=== PATIENT | female | born 1990 | race Caucasian/White ===

== ENCOUNTER 2021-02-15 23:06 | Emergency (ER) | payer OTHER, SELFPAY ==
--- NOTE | ~2021-02-15 | CT_ITS ---
EXAMINATION: CT HEAD WITHOUT CONTRAST CLINICAL INFORMATION: persistent SUNG >1 month, r/o mass COMPARISON: None TECHNIQUE: Contiguous axial imaging was performed from the skull base to vertex without intravenous administration of contrast. This CT examination was performed using dose optimization techniques as appropriate, variously including the following: *Automated exposure control *Adjustment of mA and/or kV according to patient size (this includes techniques or standardized protocols for targeted exams where dose is matched to indication/reason for exam; i.e. extremities or head) *Use of iterative reconstruction technique DLP: 711 mGy-cm FINDINGS: There is no evidence of acute intracranial hemorrhage or territorial infarction. No abnormal mass effect or midline shift is seen. Langford to white matter differentiation is well preserved. No extra-axial fluid collections are identified. No mass lesions are identified on this unenhanced study. There is partial effacement of the CSF spaces at the foramen magnum with borderline tonsillar ectopia (7 mm). The ventricles are normal in size. There is no abnormal attenuation within the brain parenchyma. The osseous structures and soft tissues are normal. The mastoid air cells and visualized portions of the paranasal sinuses are well aerated. CT/CT head/brain wo con IMPRESSION: No acute intracranial pathology. Crowding of the foramen magnum with borderline cerebellar tonsillar ectopia, suggestive of a Chiari 1 malformation. Consider nonemergent MRI brain without contrast for further assessment.
[2021-02-15 23:35] VITALS: BP 142/96; PULSE 80; RESP 20; TEMP 36.8; O2SAT 99; BMI 43.8
--- NOTE | 2021-02-16 01:20 | ED_ITS ---
HPI - Headache General Chief Complaint: Headache Stated Complaint: pressure on left side of head, blurred vision Time Seen by Provider: 02/16/21 01:01 Source: patient Mode of arrival: ambulatory Limitations: no limitations History of Present Illness HPI Narrative: 30 yo female here with complaints of intermittent head pressure associated with intermittent blurry vision and photophobia with nausea >2 month but last few days more frequently occurring. No associated weakness, numbness, tingling, vomiting. H/o seizure disorder but non compliant with medications as they cause nausea/vomiting. H/o migraines but feels different to patient. Related Data Allergies Allergy/AdvReac Type Severity Reaction Status Date / Time PEANUT BUTTER Allergy Severe HIVES AND Uncoded 02/15/21 23:34 DIFFICULTY BREATHING Peanuts Butter Allergy Unknown Hives Uncoded 02/15/21 23:34 Review of Systems Review of Systems: Yes all other systems are reviewed and are negative Constitutional: Constitutional: Reports no additional constitutional complaints, Denies body ache(s), Denies chills, Denies fever(s), Reports headache(s) and Denies weakness Eyes: Eyes: Reports no additional eye complaints and Denies change in vision ENT: Reports system reviewed and no additional complaints, except as documented, Denies dizziness, Reports headache(s), Denies nasal congestion, Denies nasal discharge and Denies neck pain Cardiovascular: Cardiovascular: Reports no additional cardiovascular complaints, Denies chest pain, Denies leg edema and Denies dyspnea Respiratory: Respiratory: Reports no additional respiratory complaints, Denies cough and Denies dyspnea Gastrointestinal: Gastrointestinal: Reports no additional gastrointestinal complaints, Denies abdominal pain, Denies diarrhea, Denies nausea and Denies vomiting Genitourinary: Genitourinary: Reports no additional female genitourinary complaints and Denies urinary incontinence Musculoskeletal: Musculoskeletal: Reports no additional musculoskeletal complaints, Denies back pain, Denies arthralgias, Denies joint swelling, Denies neck pain, Denies numbness and Denies tingling Integumentary/Breasts: Skin/Breast: Reports system reviewed and no additional complaints, except as docu and Denies rash Neurologic: Reports system reviewed and no additional complaints, except as documented, Denies Abnormal speech present, Denies dizziness, Reports headache(s), Denies numbness, Denies tingling and Denies weakness PMF Past Medical History Attestation statement: The following information was validated with the patient. Source: old records reviewed and nursing notes reviewed Social History Social History Alcohol intake: never Smoked in Last 30 Days: No Advance Directives: No Advance Directives Information Provided: No Physical Exam Vital Signs: Vital Signs: Last Vital Signs Temp 98.2 F 02/15/21 23:35 Pulse 80 02/15/21 23:35 Resp 16 02/16/21 01:58 BP 142/96 H 02/15/21 23:35 Pulse Ox 99 02/15/21 23:35 Body Mass Index 43.8 Const: General: cooperative, healthy appearing, comfortable and no acute distress Orientation/consciousness: patient oriented x3 Limitations: no limitations HENMT: Head: Yes normal to inspection Ears: hearing grossly normal bilaterally General nose exam: Normal external nose present Face and sinus: Yes normal facial exam Mouth: Normal oral and palatal mucosa present Throat: Yes posterior oropharynx normal Eyes: General: appearance normal, both eyes and all related structures Pupi ls: Equal, round and reactive pupils present Neck: Neck: Yes normal visual inspection Chest: Chest palpation & inspection: normal inspection of the chest Resp: Effort & Inspection: normal respiratory effort Auscultation: clear to auscultation bilaterally Cardio: Rate: regular rate Rhythm: regular rhythm Peripheral pulses: Peripheral pulses 2+ throughout GI: Inspection: Yes normal to inspection Palpation (GI): Soft to palpation and nontender Auscultation: normal bowel sounds Back/Spine/Pelvis: Thoracic/Lumbar Spine: thoracic and lumbar spine normal to inspection Skin: General skin exam: no rashes or lesions noted Neuro: General: patient oriented x3, no focal motor deficits and normal sensation to monofilament Cranial nerves: Yes CN's II-XII intact bilaterally, Yes Equal, round and reactive pupils present, Yes Bilaterally intact EOM present, Yes Nystagmus not present, Yes Normal facial strength present and Yes Midline tongue present Cognition (Neuro): normal cognition Speech: No Abnormal speech present Gait exam (Neuro): Normal gait present Motor exam (neuro): 5/5 motor strength present throughout Sensory Exam: Normal double simultaneous stimulation for sensation Extrem: General: Yes normal to inspection Course Course Course Narrative: 30 yo female here with complaints of intermittent head pressure with associated blurry vision, photophobia and nausea >2 month. Normal neuro exam. H/o migraines but feels different. 1420-CT head shows IMPRESSION: No acute intracranial pathology. Crowding of the foramen magnum with borderline cerebellar tonsillar ectopia, suggestive of a Chiari 1 malformation. Consider nonemergent MRI brain without contrast for further assessment. NO hydrocephalus seen. Reviewed with Dr Calderon and Dr Avendano. Patient has mild SUNG here with symptoms >2 months with no focal neurological findings. ?chiari malformation as cause of SUNG vs secondary cause. Will refer to neurology for outpatient f/u/. Reviewed worrisome signs/symptoms with patient including worsening SUNG, vomiting episodes, weakness and when to seek care in ED. Comfortable with plan for follow-up. MDM - Headache Differential Diagnosis Differential diagnosis: Likely migraine, tension headache and subarachnoid hemorrhage Medical Records Attestation: I reviewed the patient's medical records. Lab Data Attestation: I reviewed the patient's lab results. Imaging Data CT scan - head: Attestation: I personally reviewed and interpreted this imaging study as follows: Radiologist's impression: IMPRESSION: No acute intracranial pathology. Crowding of the foramen magnum with borderline cerebellar tonsillar ectopia, suggestive of a Chiari 1 malformation. Consider nonemergent MRI brain without contrast for further assessment. Discharge Plan Discharge Clinical Impression: Headache, Abnormal CT scan of head Patient Disposition: Home, Self-Care Instructions: Acute Headache (ED) Additional Instructions: Avoid migraine triggers Increase fluids, rest Limit screen time Your CT scan today showed a chiari malformation and you were given a copy of the report. Call neurology to follow-up and see if this is the explanation of your symptoms Referrals: Lorne Sheridan MD [Physician] - 2 days Physician,Unknown [Primary Care Provider] - 2 days
[2021-02-16 01:58] VITALS: RESP 16
== END 2021-02-16 02:59 | disposition home or self-care (01) ==
PROVIDERS: Emergency Provider Emergency Medicine Emergency Medical Services
DX: R51.9 Headache, unspecified (principal); R93.89 Abnormal findings on diagnostic imaging of other specified body structures
CPT/HCPCS: 70450; 99284

== ENCOUNTER 2021-02-21 09:48 | Emergency (ER) | payer OTHER, SELFPAY ==
[2021-02-21 10:21] VITALS: BP 128/81; PULSE 90; RESP 16; TEMP 36.8; O2SAT 95; BMI 43.6
[2021-02-21 11:47] VITALS: BP 133/85; PULSE 84; RESP 18; O2SAT 98
[2021-02-21] MEDS: Ketorolac Tromethamine 30 MG/ML VIAL IVPUSH (12:02)
[2021-02-21] MEDS: diphenhydrAMINE HCL 50 MG/ML VIAL IVPUSH (12:02)
[2021-02-21] MEDS: Metoclopramide HCl 10 MG/2 ML VIAL IVPUSH (12:02)
[2021-02-21] MEDS: 0.9 % Sodium Chloride 1,000 ML 999 ML IV (12:03)
--- NOTE | 2021-02-21 12:59 | PC.NURSE ---
pt resting in the stretcher using her phone, reports feeling better pain at 4/10
--- NOTE | 2021-02-21 13:19 | ED.HA ---
HPI - Headache General Chief Complaint: Headache Stated Complaint: pressure in head Time Seen by Provider: 02/21/21 11:13 Source: patient Mode of arrival: ambulatory Limitations: no limitations History of Present Illness HPI Narrative: 30-year-old female who presents emergency department for evaluation of headaches. Patient states she has been having headaches for approximately 2 months. She states that initially the headaches were every other day, over the past week the headaches have been occurring daily. She points to her left neck in the left side her head when asked to localize the pain. She describes as a pressure pain which is constant and is 20/10 at its worst. She states that she also has pain behind her left eye and occasionally gets left eye blurred vision. She has occasional nausea but no vomiting so she did with the headache. She does have photophobia. The patient was seen in the emergency department on 02/16/2021 for similar headache. She had a CT scan of the brain at that time revealed Chairi 1 malformation with crowding of the foramen magnum with borderline cerebellar tonsillar ectopia. Is unclear if this was referred to the patient's headaches and she was related to Neurology for further evaluation of her headaches. The patient states that she is not able to get a neurology appointment until March 2021. Related Data Previous Rx's Medication Instructions Recorded metoclopramide HCl [Reglan] 10 mg PO Q6H PRN #14 tab 02/21/21 Allergies Allergy/AdvReac Type Severity Reaction Status Date / Time PEANUT BUTTER Allergy Severe HIVES AND Uncoded 02/15/21 23:34 DIFFICULTY BREATHING Peanuts Butter Allergy Unknown Hives Uncoded 02/15/21 23:34 Review of Systems Review of Systems: Yes all other systems are reviewed and are negative [facility] Past Medical History [facility] Narrative: past medical history: None. Past surgical history: 2 years prior. Social history: She denies tobacco, alcohol and drug use. Medical History (Updated 02/21/21 @ 13:30 by Taqueria Avendano MD) No known health problems Social History Social History Alcohol intake: never Patient Tobacco Use Status: Never used Tobacco Use of substances other than those prescribed or required for medical reasons: No Advance Directives: No Advance Directives Information Provided: No Patient : No Physical Exam Vital Signs: Vital Signs: Last Vital Signs Temp 98.2 F 02/21/21 10:21 Pulse 84 02/21/21 11:47 Resp 18 02/21/21 11:47 BP 133/85 02/21/21 11:47 Pulse Ox 98 02/21/21 11:47 Body Mass Index 43.6 Const: General: cooperative and healthy appearing Orientation/consciousness: oriented to person and oriented to place Limitations: no limitations HENMT: Head: Yes normal to inspection, Yes normocephalic and Yes atraumatic Ears: external ears normal General nose exam: Normal external nose present Face and sinus: Yes normal facial exam Mouth: Normal oral and palatal mucosa present Throat: Yes posterior oropharynx normal Eyes: Periorbital: periorbital findings normal Eyelids: Yes eyelids normal Conjunctivae: conjunctivae normal Sclerae: sclerae normal Corneas: corneas normal Pupils: Equal, round and reactive pupils present Direct Ophthalmoscopy: normal light reflex Neck: Other: Moderate tenderness to palpation of the left trapezius muscle and left occiputal ridge Neck: Yes full ROM, Yes no lymphadenopathy, Yes no meningeal signs, Yes trachea midline and Yes supple Chest: Chest palpation & inspection: normal inspection of the chest and normal palpation of entire chest wall Resp: Effort & Inspection: normal respiratory effort and able to speak in complete sentences Auscultation: clear to auscultation bilaterally Cardio: Rate: regular rate Rhythm: regular rhythm Heart sounds: S1 normal heart sound present, S2 normal heart sound present and no murmurs GI: Inspection: Yes normal to inspection Palpation (GI): Soft to palpation, nontender, no guarding, not rigid and No hepatosplenomegaly present : General: Yes no CVA tenderness Back/Spine/Pelvis: Back: no CVA tenderness Cervical Spine: normal cervical lordosis Thoracic/Lumbar Spine: thoracic and lumbar spine normal to inspection Skin: Lesions: no lesions Rashes: no rashes Wounds: no wounds Neuro: General: oriented to person, oriented to place and no meningeal signs Cranial nerves: Yes CN's II-XII intact bilaterally and Yes Equal, round and reactive pupils present Cognition (Neuro): normal cognition Motor exam (neuro): 5/5 motor strength present throughout Extrem: General: Yes normal to inspection and Yes full ROM Psych: Appearance: well kempt Mental Status: mental status grossly normal Speech and movement: Normal speech and movement present Affect: normal affect Attitude: cooperative Thought process: Normal thought process present Thought content: Normal thought content present Course Course Course Narrative: 30-year-old female who presents emergency department for evaluation of headaches x2 months which have gotten worse over the past week. The headache is left-sided, associated with photophobia, nausea and left eye pain. Patient's physical examination did reveal some tenderness with palpation of her left trapezius muscle otherwise was unremarkable, her neurologic exam was nonfocal. Patient was treated for possible migraine syndrome with normal saline x1 L, Reglan 10 mg IV, Benadryl 50 mg IV and Toradol 30 mg IV. The patient states that her headache is almost completely resolved after this treatment. The patient was discharged with the following migraine regimen: Reglan 10 mg orally, Benadryl 50 mg orally and Excedrin migraine 1 tablet orally every 6 hours as needed for headache. I told the patient that she should make an appointment with our neurologist but she should also try to see if there is any local neurologist at other institutions that can see her sooner. She was discharged with a copy of her CT scan from the previous visit and the reading of the CT scan from previous visit. The patient was given verbal and printed instructions prior to discharge. The patient was advised to follow-up with their PCP in 2 days and to return to the emergency department if their symptoms get worse or if they develop any new symptoms that are concerning to them . Discharge Plan Discharge Clinical Impression: Migraine Qualifiers: Migraine type: without aura Status migrainosus presence: without status migrainosus Intractability: not intractable Qualified Code(s): G43.009 - Migraine without aura, not intractable, without status migrainosus Patient Disposition: Home, Self-Care Instructions: Migraine Headache (ED) Additional Instructions: For your headaches take the following 3 medications together every 6 hours as needed: Reglan ( metoclopramide) 10 mg, 1 pill orally Benadryl 25 mg pills, 2 pills orally Excedrin migraine, 1 pill orally. After you take these medications, lie down in a dark quiet room. These medications will make you sleepy, do not drive or work if you take these medications. If you can fall asleep, this will often break the migraine headache. You should try to get a follow-up apointment with our neurologist. You can also try neurologist at other institutions such as [facility] or [facility]. Dr. Alonso Gonsalez is a neurologist in [place] ( [phone]. Call his office to see if he can fall you up. Prescriptions: New metoclopramide HCl [Reglan] 10 mg tablet 10 mg PO Q6H PRN (Reason: nausea and vomiting) Qty: 14 RF: 0
[2021-02-21 13:37] VITALS: BP 112/70; PULSE 73; RESP 17; TEMP 36.9; O2SAT 96
== END 2021-02-21 13:43 | disposition home or self-care (01) ==
PROVIDERS: Emergency Provider Emergency Medicine Emergency Medical Services
DX: G43.009 Migraine without aura, not intractable, without status migrainosus (principal); G93.5 Compression of brain
CPT/HCPCS: 96361; 96374; 96375; 99284; J1200; J1885; J2765

== ENCOUNTER 2022-09-05 16:38 | Emergency (ER) | payer OTHER, SELFPAY ==
--- NOTE | ~2022-09-05 | CT_ITS ---
EXAMINATION: CT HEAD WITHOUT CONTRAST CLINICAL INFORMATION: Posterior headache. Vision changes. COMPARISON: 02/16/2021 TECHNIQUE: Multidetector volumetric imaging of the head was performed without intravenous contrast material. This CT examination was performed using dose optimization techniques as appropriate, variously including the following: *Automated exposure control *Adjustment of mA and/or kV according to patient size (this includes techniques or standardized protocols for targeted exams where dose is matched to indication/reason for exam; i.e. extremities or head) *Use of iterative reconstruction technique Dose: 657 mGy-cm FINDINGS: There is no evidence of acute intracranial hemorrhage or territorial infarction. No abnormal mass-effect or midline shift is seen. Langford to white matter differentiation is well preserved. No extra axial fluid collections. There is partial effacement of the CSF spaces at the foramen magnum with borderline tonsillar ectopia (7 mm). The ventricles are normal in size and configuration. There is no abnormal attenuation within the brain parenchyma. The soft tissues and osseous structures are normal. The sinuses and mastoid air cells are clear. CT/CT head/brain wo IV con IMPRESSION: No acute intracranial pathology. Borderline cerebellar tonsillar ectopia, unchanged.
[2022-09-05 16:51] VITALS: BP 149/88; PULSE 90; RESP 18; TEMP 36.1; O2SAT 99; BMI 46.4
--- NOTE | 2022-09-05 16:52 | ED.HA ---
HPI - Headache General Chief Complaint: Headache <CURT Bruce Last Filed: 09/05/22 16:56> Stated Complaint: pressure in head, vision issues <CURT Bruce Last Filed: 09/05/22 16:56> Time Seen by Provider: 09/05/22 18:16 <CURT Bruce Last Filed: 09/05/22 16:56> Source: patient <CURT Nesbitt Last Filed: 09/05/22 18:58> Mode of arrival: ambulatory <CURT Nesbitt Last Filed: 09/05/22 18:58> Limitations: no limitations <CURT Nesbitt Last Filed: 09/05/22 18:58> History of Present Illness HPI Narrative: This is a 32-year-old female presenting to the emergency department complaints of pressure to the back of her head times a few years not improving. Patient states that this has been going on unchanged for the past 2 years what made her come in today is that it is happening more frequently. She tells me for the past year she has been having intermittent vision changes that are lasting a few seconds and then her vision returns to normal. Patient has not seen a neurologist for this. She tells me at this time she has no vision changes she just feels pressure in her head, when I ask her to describe the pain she just says pressure she says she has a hard time describing the. She denies neck pain, fevers, chills, numbness, tingling, chest pain, shortness of breath, facial asymmetry, changes in voice. <CURT Nesbitt Last Filed: 09/05/22 18:58> Related Data Home Medications: Previous Rx's Medication Instructions Recorded metoclopramide HCl 10 mg tablet 10 mg PO Q6H PRN nausea and 02/21/21 (Reglan) vomiting #14 tabs ketorolac 10 mg tablet 10 mg PO TID PRN pain 5 days #15 09/05/22 tabs <CURT Bruce Last Filed: 09/05/22 16:56> Allergies/Adverse Reactions: Allergies Allergy/AdvReac Type Severity Reaction Status Date / Time PEANUT BUTTER Allergy Severe HIVES AND Uncoded 09/05/22 16:57 DIFFICULTY BREATHING Peanuts Butter Allergy Unknown Hives Uncoded 09/05/22 16:57 <CURT Bruce - Last Filed: 09/05/22 16:56> Review of Systems Review of Systems: Constitutional : No Weight loss, No Fever, No Chills, No Fatigue, No Malaise ENT/Mouth : No sore throat, No Rhinorrhea Eyes: No Eye Pain, No Swelling, No Redness Cardiovascular : No Chest Pain, No SOB, No Dyspnea on Exertion, No Orthopnea, No Edema, No Palpitations Respiratory : No Cough, No Sputum, No Wheezing Gastrointestinal : No Nausea, No Vomiting, No Diarrhea, No Constipation, No abdominal Pain, No Hematochezia, No Melena Genitourinary : No Dysuria, No Urinary Frequency, No Hematuria, Musculoskeletal : No joint pain, No Myalgias, No Joint Swelling Skin : No Skin Lesions, No rash Neuro : No Weakness, No Numbness, No Dizziness, + Headache Psych : No Anxiety/Panic, No Depression All other systems reviewed and are negative <CURT Nesbitt - Last Filed: 09/05/22 18:58> Yes all other systems are reviewed and are negative <CURT Nesbitt - Last Filed: 09/05/22 18:58> [facility] Past Medical History Attestation statement: The following information was validated with the patient. <CURT Nesbitt - Last Filed: 09/05/22 18:58> Source: old records reviewed and nursing notes reviewed <CURT Nesbitt - Last Filed: 09/05/22 18:58> Medical History: Medical History No known health problems <CURT Bruce - Last Filed: 09/05/22 16:56> Social History Social History: Social History Alcohol intake: never Patient Tobacco Use Status: Never used Tobacco Advance Directives: No Advance Directives Information Provided: No <CURT Bruce - Last Filed: 09/05/22 16:56> Physical Exam Vital Signs: Vital Signs: Last Vital Signs Temp 97.0 F 09/05/22 16:51 Pulse 90 09/05/22 16:51 Resp 18 09/05/22 16:51 BP 149/88 H 09/05/22 16:51 Pulse Ox 99 09/05/22 16:51 O2 Del Method 09/05/22 16:51 BMI result Body Mass Index 46.4 <CURT Bruce - Last Filed: 09/05/22 16:56> Vital Signs: Last Vital Signs Temp 97.0 F 09/05/22 16:51 Pulse 90 09/05/22 16:51 Resp 18 09/05/22 16:51 BP 149/88 H 09/05/22 16:51 Pulse Ox 99 09/05/22 16:51 O2 Del Method 09/05/22 16:51 BMI result Body Mass Index 46.4 vss <CURT Nesbitt - Last Filed: 09/05/22 18:58> Appearance: Alert.? Oriented X3.? No acute distress.? Head: Normocephalic, atraumatic, no step-offs or deformities Eyes: Pupils equal, round and reactive to light.? ENT: Pharynx normal.?Normal fundoscopic exam 2:1 cup to disc ratio, normal red reflex, normal vessels in all 4 directions. EOMI and pain free. Neck: Normal inspection.? Neck supple.? Negative him Kernig and Brudzinski. CVS: Normal heart rate and rhythm.? Pulses normal.? Respiratory: No respiratory distress.? Breath sounds normal.? Abdomen: Soft and nontender.? Skin: Skin warm and dry.? Normal skin color.? Normal skin turgor.? Extremities: No lower extremity edema.? No calf ttp. 5/5 strength to bilateral upper and lower extremities Neuro: Oriented X 3.? No motor deficit.? No sensory deficit. CN 2-12 intact . Normal [id number], cpki-fd-[id number], steady tandem gait with normal coordination. <CURT Nesbitt - Last Filed: 09/05/22 18:58> Course Course Course Narrative: RME - 32 yo female with history of headaches for the last 1 year presents to the ER for evaluation of worsening pressure in the back of her head and new onset of vision changes 3 months ago. She states her vision will randomly go out for a few seconds and she has been getting tingling in both of her heads. CT head in 2020 showing possible Chiari 1 malformation and has been unable to get an outpatient MRI. Will repeat CT head today given worsening symptoms. <CURT Bruce - Last Filed: 09/05/22 16:56> Reevaluation(s) Reevaluation #1: CT of the head with no acute intracranial pathology. Borderline cerebellar tonsillar ectopia unchanged from previous scans. Patient was given Toradol with mild relief of symptoms, will send home with short supply of Toradol. Will have her follow-up with Neurology. Patient's neuro exam remains nonfocal. This case was discussed with my attending Dr. Mclean who agrees w/ dx and tx plan , he also recommends having patient follow-up with Neurosurgery. Educated patient on diagnosis and treatment plan, answered all question, patient verbalizes understanding. At this time patient will be discharged home, advised to return with new or worsening symptoms. Educated on worrisome signs and symptoms and when to return. At this time I feel comfortable w/ discharge home , nothing to be done an emergent basis. <CURT Nesbitt - Last Filed: 09/05/22 18:58> Time: 18:56 <CURT Nesbitt - Last Filed: 09/05/22 18:58> Medications Administered Discontinued Medications Generic Name Dose Route Start Last Admin Trade Name Freq PRN Reason Stop Dose Admin Ketorolac Tromethamine 30 mg 09/05/22 18:26 09/05/22 19:07 Ketorolac Tromethamine 30 Mg/Ml Vial IM 09/05/22 18:27 30 mg ONCE ONE Administration <CURT Bruce - Last Filed: 09/05/22 16:56> Medications Administered Discontinued Medications Generic Name Dose Route Start Last Admin Trade Name Freq PRN Reason Stop Dose Admin Ketorolac Tromethamine 30 mg 09/05/22 18:26 09/05/22 19:07 Ketorolac Tromethamine 30 Mg/Ml Vial IM 09/05/22 18:27 30 mg ONCE ONE Administration <CURT Nesbitt - Last Filed: 09/05/22 18:58> Medical Decision Making Medical Decision Making [facility] Narrative: 1827 32 year old female presents w/ head pressure in the occipital region X 2 years w/ intermittent vision changes PE benign. NIHSS 0, GCS 15 Likely migraine. Unlikely normal pressure hydrocephalus, migraine, stroke, posterior stroke. History and physical exam not consistent with call,, wet macular degeneration. Upon chart reivew CT scan on 01/27/[address] head in 2020 showing possible Chiari 1 malformation and has been unable to get an outpatient MRI. Plan- CT head <CURT Nesbitt - Last Filed: 09/05/22 18:58> Differential Diagnosis Differential Diagnoses: The differential diagnosis associated with the presentation includes <CURT Nesbitt - Last Filed: 09/05/22 18:58> Likely migraine. Unlikely normal pressure hydrocephalus, migraine, stroke, posterior stroke. <CURT Nesbitt - Last Filed: 09/05/22 18:58> Admission/Observation Consideration of admission/observation: Escalation of care including admission/observation considered <CURT Nesbitt - Last Filed: 09/05/22 18:58> unlikley needed <CURT Nesbitt - Last Filed: 09/05/22 18:58> Independent Interpretation I performed an independent interpretation of an: CT Scan <CURT Nesbitt - Last Filed: 09/05/22 18:58> Discharge Plan Discharge Clinical Impression: Headache <CURT Bruce - Last Filed: 09/05/22 16:56> Patient Disposition: Home, Self-Care <CURT Bruce - Last Filed: 09/05/22 16:56> Instructions: Acute Headache (ED), General Headache (ED) <CURT Bruce - Last Filed: 09/05/22 16:56> Additional Instructions: Take your medications as prescribed. If you were prescribed antibiotics today, it is important that you take your medication to their entirety, do not skip any doses, do not finish them early. Follow-up with your primary care provider this week. Please follow-up with neurology and neuro surgery Return to the emergency department with new or worsening symptoms. Such as fevers, chills, chest pain, shortness of breath, nausea, vomiting, dizziness, headache, vision changes, lethargy, changes in vision, dizziness, weakness. In case of emergency call 911 Toradol has been sent to your pharmacy, you tolerated this well in the department. Please take this as prescribed do not take this with ibuprofen, or other NSAIDs, do not mix this with alcohol. Side effects of this medication including increased risk for bleeding and possible kidney injury. [facility] neuro surgery [phone] [place], [address] CT/CT head/brain wo IV con IMPRESSION: No acute intracranial pathology. ? Borderline cerebellar tonsillar ectopia, unchanged. <CURT Bruce - Last Filed: 09/05/22 16:56> Prescriptions: New ketorolac 10 mg tablet 10 mg PO TID PRN (Reason: pain) 5 Days Qty: 15 0RF Rx Instructions: Tolerated IM in the department No Action metoclopramide HCl [Reglan] 10 mg tablet 10 mg PO Q6H PRN (Reason: nausea and vomiting) Qty: 14 0RF <CURT Bruce - Last Filed: 09/05/22 16:56> Referrals: [facility] Neuro/Sleep [Provider Group] - 1 week Physician,Unknown J [Primary Care Provider] - <CURT Bruce - Last Filed: 09/05/22 16:56> Interventions: ED Discharge Assessment Last Done: 09/05/22 19:14 <CURT Bruce - Last Filed: 09/05/22 16:56> Discharge Date/Time: 09/05/22 19:15 <CURT Bruce - Last Filed: 09/05/22 16:56>
[2022-09-05] MEDS: Ketorolac Tromethamine 30 MG/ML VIAL IM (19:07)
== END 2022-09-05 19:15 | disposition home or self-care (01) ==
PROVIDERS: Emergency Provider Emergency Medicine
DX: R51.9 Headache, unspecified (principal); R40.2410 Glasgow coma scale score 13-15, unspecified time; Z79.899 Other long term (current) drug therapy
CPT/HCPCS: 70450; 96372; 99283; 99284; J1885

== ENCOUNTER 2023-09-18 13:26 | Emergency (ER) | payer OTHER, SELFPAY ==
--- NOTE | ~2023-09-18 | CT_ITS ---
EXAMINATION: CT HEAD WITHOUT CONTRAST CLINICAL INFORMATION: Headache. Chiari malformation. COMPARISON: CT head from 09/05/2022 and 02/16/2021. TECHNIQUE: Contiguous axial imaging was performed from the skull base to vertex without intravenous administration of contrast. This CT examination was performed using dose optimization techniques as appropriate, variously including the following: *Automated exposure control. *Adjustment of mA and/or kV according to patient size (this includes techniques or standardized protocols for targeted exams where dose is matched to indication/reason for exam; i.e. extremities or head). *Use of iterative reconstruction technique. DLP: 714 mGy-cm FINDINGS: There is no evidence of acute intracranial hemorrhage or edematous territorial infarction. Langford-white matter differentiation is preserved. There is no abnormal attenuation within the brain parenchyma. The ventricles are normal in morphology and size. No evidence for obstructive hydrocephalus. The cerebellar tonsils are low lying, positioned 0.8 cm below the foramen magnum, similar to prior exams. There is partial effacement of the CSF space of the foramen magnum. Moderate expansion of the sella turcica with partial flattening of the pituitary gland. No abnormal mass effect or midline shift. No extra-axial fluid collections. No acute soft tissue or osseous abnormalities. Mild mucosal thickening of the paranasal sinuses. The mastoid air cells and middle ear cavities are clear. CT/CT head/brain wo IV con IMPRESSION: 1. No evidence of acute intracranial hemorrhage or edematous territorial infarction. 2. The cerebellar tonsils are low lying, positioned up to 0.8 cm below the foramen magnum (similar prior exams). This may be seen in the setting of underlying Chiari I malformation. However, this finding could also be acquired in the setting of intracranial hypertension.
--- NOTE | 2023-09-18 13:33 | ED.HA ---
HPI - Headache General Chief Complaint: General Medical Stated Complaint: Headache, blurry vision Time Seen by Provider: 09/18/23 20:38 Source: patient and family () Mode of arrival: ambulatory Limitations: no limitations History of Present Illness HPI Narrative: 33-year-old female history of seizures, Chiari 1 malformation who presents emergency department for evaluation of headache. Patient states she has had a constant headache for 4 years. She describes the headache as a pressure on the back of her head that is constant. She states that she gets intermittent sharp pains which are much more intense than her chronic headache. She states that she gets occasional blurred vision, photophobia and phonophobia associated with her headaches. She states that occasionally both arms get numb. She states that today her headache got worse therefore she came to the emergency department for evaluation. She denied fever, chills, nausea, vomiting, cough. At the time of evaluation she denies numbness or weakness of her extremities. The patient was seen in the emergency department several times in the past (02/16/2021, 02/21/2021 and 09/05/2022) for chronic headaches and each time she was advised to follow-up with neurology and possibly neurosurgery for her headaches. Patient states that she has not been able to see a neurologist or neurosurgeon to evaluate the Chiari 1 malformation. Related Data Previous Rx's Medication Instructions Recorded metoclopramide HCl 10 mg tablet 10 mg PO Q6H PRN nausea and 02/21/21 (Reglan) vomiting #14 tabs ketorolac 10 mg tablet 10 mg PO TID PRN pain 5 days #15 09/05/22 tabs morphine 15 mg immediate release 15 mg PO Q6H PRN pain #10 tabs 09/18/23 tablet Allergies Allergy/AdvReac Type Severity Reaction Status Date / Time PEANUT BUTTER Allergy Severe HIVES AND Uncoded 09/18/23 13:37 DIFFICULTY BREATHING Peanuts Butter Allergy Unknown Hives Uncoded 09/18/23 13:37 Review of Systems Review of Systems: Yes all other systems are reviewed and are negative [facility] Past Medical History [facility] Narrative: Past medical history: Seizures, Chiari 1 malformation. Social history: She denies tobacco, alcohol and drug use. She is and she is here with her who at this hospital. Medical History No known health problems Social History Social History Alcohol intake: never Patient Tobacco Use Status: Never used Tobacco Smoked in Last 30 Days: No Use of substances other than those prescribed or required for medical reasons: No Advance Directives: No Patient : No Physical Exam Vital Signs: Vital Signs: Last Vital Signs Temp 98.2 F 09/18/23 21:22 Pulse 89 09/18/23 21:22 Resp 17 09/18/23 21:22 BP 131/80 09/18/23 21:26 Pulse Ox 99 09/18/23 21:22 O2 Del Method Room Air 09/18/23 21:22 BMI result Body Mass Index 47.1 Vital signs were normal Exam: General: Awake, alert in no distress Head: Normocephalic, atraumatic EENT: PERRL, Lids normal, sclera normal, conjunctiva normal, nose normal , ears normal, throat without erythema or exudates Neck: Supple, no adenopathy, patient does have tenderness palpation of her trapezius muscles bilaterally Lung: breath sounds symmetric, no wheezing, rales or rhonchi Chest: symmetric movement, nontender Heart: regular rate and rhythm, normal S1, S2 no murmurs or rubs Abdomen: soft, non-tender, nondistended, normal bowel sounds Back: no vertebral tenderness, no CVAT Extremities: no deformities, moves all extremities symmetrically Neuro: Awake, alert, oriented, normal speech, cranial nerves intact, moves all extremities symmetrically Psych: Pleasant, cooperative Course Course Course Narrative: RME: 33 year-old F w/ PMHx presenting to the ED c/o pressure in back of head and sinuses x3-4 years w/arm tingling & blurry vision x1 yr. Patient has been seen and treated in our ED for similar symptoms, had head CT 1 year ago Labs ordered Full HPI, ROS and PE to be performed by primary ED provider. -1941--labs reassuring, pt still c/o SUNG. PO Fioricet given in triage. Pending full eval Medications Administered Discontinued Medications Generic Name Dose Route Start Last Admin Trade Name Freq PRN Reason Stop Dose Admin Acetaminophen 975 mg 09/18/23 21:04 01/24/24 21:27 Acetaminophen 325 Mg Tablet PO 09/18/23 21:05 975 mg ONCE ONE Administration Acetaminophen/Butalbital/Caffeine 1 tab 09/18/23 19:43 09/18/23 20:01 Butalb/Acetamin/Caff 50/325/40 Tablet PO 09/18/23 19:44 1 tab ONCE ONE Administration Aspirin 325 mg 09/18/23 21:04 09/18/23 21:26 Aspirin 325 Mg Tablet PO 09/18/23 21:05 325 mg ONCE ONE Administration Diphenhydramine HCl 50 mg 09/18/23 21:04 09/18/23 21:27 Diphenhydramine Hcl 25 Mg Capsule PO 09/18/23 21:05 50 mg ONCE ONE Administration Metoclopramide HCl 10 mg 09/18/23 21:04 09/18/23 21:26 Metoclopramide Hcl 10 Mg Tablet PO 09/18/23 21:05 10 mg ONCE STA Administration Medical Decision Making Medical Decision Making MDM Narrative: 33-year-old female history of seizures, Chiari 1 malformation who presents emergency department for evaluation of chronic headache with exacerbation of this headache today. The headache is located in the back of her head, constant, with intermittent exacerbation with sharp pain and intermittent numbness of both extremities with photophobia and phonophobia but no nausea or vomiting. She states that also she occasionally gets blurred vision with her headaches. She had no other concerning systemic symptoms at the time my evaluation she had no numbness or weakness of her extremities. Vital signs were normal. Examination did reveal tenderness palpation of her trapezius muscles otherwise neurologic exam was nonfocal. Following evaluation was ordered: CBC, BNP, magnesium, liver panel, PT/INR, troponin, CT scan of the brain without IV contrast Patient was treated with the following: Acetaminophen thin 975 mg orally, aspirin 325 mg orally, Reglan 10 mg orally and Benadryl 50 mg orally 23:16 My interpretation patient's laboratory evaluation is as follows: CBC was normal. Coags were normal. CMP was normal. Troponin was below detectable limits. CT scan of the brain was consistent with the patient's Chiari 1 malformation is unchanged from CT from 1 year prior. Patient got no relief of her symptoms with the above medications therefore she was given morphine 15 mg orally. I did prescribe morphine 15 mg every 6 hours as needed for pain, dispensed 10 tablets. Patient will be referred to our neurology group for follow-up of her chronic headaches and to evaluate the possibility of a Chiari 1 malformation causing her pain. Differential Diagnosis Differential Diagnoses: The differential diagnosis associated with the presentation includes Differential diagnosis includes was not limited to migraine syndrome, headache syndrome, worsening of Chiari 1 malformation Admission/Observation Consideration of admission/observation: Escalation of care including admission/observation considered Lab Data 09/18/23 14:04 09/18/23 14:04 Labs: Lab Results 09/18/23 Range/Units 14:04 WBC 8.9 (4.8-10.8) X10*3/uL RBC 4.80 (4.20-5.50) X10*6/uL Hgb 14.2 (12.0-16.0) g/dl Hct 42.3 (37.0-47.0) % MCV 88.1 (80.0-98.0) fL MCH 29.6 (27.0-33.0) pg MCHC 33.6 (31.0-35.0) g/dl RDW 12.8 (11.0-16.0) % Plt Count 269 (160-400) X10*3/uL MPV 10.0 (9.4-12.3) fL Immature Gran % (Auto) 0.3 (0.0-0.4) % Neut % (Auto) 75.2 H (45-73) % Lymph % (Auto) 18.5 L (20-40) % Medina % (Auto) 4.7 (2-11) % Eos % (Auto) 1.0 (0-4) % Baso % (Auto) 0.3 (0-2) % Lymph # (Auto) 1.7 (1.2-4.9) X10*3/uL [place] # (Auto) 0.4 (0.1-1.2) X10*3/uL Eos # (Auto) 0.1 (0.0-0.4) X10*3/uL Baso # (Auto) 0.0 (0.0-0.2) X10*3/uL Abs Immat Gran (auto) 0.03 (0.00-0.03) X10*3/uL Absolute Neuts (auto) 6.7 (2.0-8.3) x10*3/uL Absolute Nucleated RBC 0.000 (0.0-0.012) X10*3/uL Nucleated RBC % (auto) 0.0 (0.0-0.2) /100WBC PT 13.4 H (11.1-13.3) SEC INR 1.1 (0.9-1.1) Sodium 139 (135-145) mmol/L Potassium 4.0 (3.3-5.1) mmol/L Chloride 104 (96-108) mmol/L Carbon Dioxide 27 (22-29) mmol/L Anion Gap 12 (12-20) BUN 11 (9-16) mg/dL Creatinine 0.73 (0.5-1.4) mg/dL Estim Creat Clear Calc 120.2 Estimated GFR > 60 Random Glucose 119 H (60-115) mg/dL Calcium 9.2 (8.4-10.2) mg/dL Magnesium 1.9 (1.6-2.6) mg/dL Total Bilirubin 0.9 (0.0-1.0) mg/dL Direct Bilirubin 0.3 (0.0-0.5) mg/dL AST 15 (5-31) U/L ALT 13 (0-31) U/L Alkaline Phosphatase 85 (39-117) U/L Troponin I High Sens < 2.7 (<3.5-17.0) ng/L Total Protein 7.7 (6.5-8.0) g/dL Albumin 4.0 (3.5-5.0) g/dL Radiology Impression Discussion of test interpretation with radiology: I have reviewed the radiologist's reading. Radiologist Impression: CT head/brain wo IV con IMPRESSION: 1. No evidence of acute intracranial hemorrhage or edematous territorial infarction. 2. The cerebellar tonsils are low lying, positioned up to 0.8 cm below the foramen magnum (similar prior exams). This may be seen in the setting of underlying Chiari I malformation. However, this finding could also be acquired in the setting of intracranial hypertension. Dictated By: Vinod Olivas DO External Record Review External record reviewed: Other ([place] prescription monitoring program-no previously prescribe narcotics ) Prescription Management I considered prescription management with: Pain Medication Discharge Plan Discharge Clinical Impression: Chiari malformation type I Chronic intractable headache Qualifiers: Headache type: unspecified Qualified Code(s): R51.9 - Headache, unspecified Patient Disposition: Home, Self-Care Additional Instructions: Your blood work was normal. Your CT scan did reveal a Chiari 1 malformation which was unchanged from your previous CT scans. At this time I do not have a clear cause for your headaches however I want you to follow-up with our neurology group for evaluation and to determine if the Chiari 1 malformation may be causing your symptoms. Follow-up with your doctor in 2 days. Please return to the emergency department if your symptoms get worse or if you develop any symptoms that are concerning to you. Prescriptions: New morphine 15 mg tablet 15 mg PO Q6H PRN (Reason: pain) Qty: 10 0RF Rx Instructions: The patient may ask for partial fill; Partial Fill upon patient request. No Action metoclopramide HCl [Reglan] 10 mg tablet 10 mg PO Q6H PRN (Reason: nausea and vomiting) Qty: 14 0RF ketorolac 10 mg tablet 10 mg PO TID PRN (Reason: pain) 5 Days Qty: 15 0RF Rx Instructions: Tolerated IM in the department Referrals: Álvaro Gray MD [Physician] - 2 weeks (Chronic headache, Chiari 1 malformation unchanged, cerebellar tonsils are low lying, positioned up to 0.8 cm below the foramen magnum (similar prior exams).)
[2023-09-18 13:34] VITALS: BP 148/86; PULSE 87; RESP 20; TEMP 36; O2SAT 98; BMI 47.1
[2023-09-18 14:09] LABS: MANUAL DIFF FLAG NO
[2023-09-18 14:17] LABS: Basophils Percent Auto 0.3 % (0-2); Eosinophils Absolute Auto 0.1 X10*3/uL (0.0-0.4); Hematocrit 42.3 % (37.0-47.0); Hemoglobin 14.2 g/dl (12.0-16.0); Imm Gran Abs Auto 0.03 X10*3/uL (0.00-0.03); Imm Gran Pct Auto 0.3 % (0.0-0.4); Lymphocytes Absolute Auto 1.7 X10*3/uL (1.2-4.9); Lymphocytes Percent Auto 18.5 % (20-40); Mean Corpuscular HGB Conc 33.6 g/dl (31.0-35.0); Mean Corpuscular Hemoglobin 29.6 pg (27.0-33.0); Mean Corpuscular Volume 88.1 fL (80.0-98.0); Monocytes Absolute Auto 0.4 X10*3/uL (0.1-1.2); Monocytes Percent Auto 4.7 % (2-11); Neutrophils Absolute Auto 6.7 x10*3/uL (2.0-8.3); Neutrophils Percent Auto 75.2 % (45-73); Platelet Count 269 X10*3/uL (160-400); Red Cell Distribution Width 12.8 % (11.0-16.0); White Blood Count 8.9 X10*3/uL (4.8-10.8)
[2023-09-18 14:18] LABS: INTERNATIONAL NORM RATIO 1.1 (0.9-1.1); Prothrombin Time 13.4 SEC (11.1-13.3)
[2023-09-18 14:25] LABS: Alanine Aminotransferase 13 U/L (0-31); Alkaline Phosphatase 85 U/L (39-117); Anion Gap 12 (12-20); Aspartate Amino Transferase 15 U/L (5-31); Bilirubin Direct 0.3 mg/dL (0.0-0.5); Bilirubin Total 0.9 mg/dL (0.0-1.0); Blood Urea Nitrogen 11 mg/dL (9-16); Calcium 9.2 mg/dL (8.4-10.2); Carbon Dioxide 27 mmol/L (22-29); Chloride 104 mmol/L (96-108); Creatinine Clr Calc Pharmacy 120.2; Estimated Glomerular Filt Rate > 60; Glucose Random 119 mg/dL (60-115); Magnesium 1.9 mg/dL (1.6-2.6); Sodium 139 mmol/L (135-145); Total Protein 7.7 g/dL (6.5-8.0)
[2023-09-18 14:43] LABS: Troponin-I High Sensitivity < 2.7 ng/L (<3.5-17.0)
[2023-09-18 19:44] VITALS: BP 124/85; PULSE 82; RESP 18; TEMP 36.8; O2SAT 98
[2023-09-18] MEDS: Butalb/Acetamin/Caff 50/325/40 TABLET 1 TAB PO (20:01)
[2023-09-18 21:22] VITALS: PULSE 89; RESP 17; TEMP 36.8; O2SAT 99
[2023-09-18 21:26] VITALS: BP 131/80
[2023-09-18] MEDS: Aspirin 325 MG TABLET PO (21:26)
[2023-09-18] MEDS: Metoclopramide HCl 10 MG TABLET PO (21:26)
[2023-09-18] MEDS: diphenhydrAMINE HCL 25 MG CAPSULE 50 MG PO (21:27)
[2023-09-18] MEDS: Acetaminophen 325 MG TABLET 975 MG PO (21:27)
--- NOTE | 2023-09-18 21:28 | PC.NURSE ---
pt medicated per mar.
--- NOTE | 2023-09-18 21:56 | PC.NURSE ---
pt from home a&ox4, respirations even and unlabored. pt reporting a head pressure in the back of head that she has had for 4 years but now is reporting dizziness and blurriness in the eyes. pt denies n.v.d. pt neuro in tact.
[2023-09-18] MEDS: Morphine Sulfate Immed Release 15 MG TABLET PO (23:42)
--- NOTE | 2023-09-18 23:44 | PC.NURSE ---
pt medicated per mar upon discharge. pt states she has a safe ride home.
[2023-09-18 23:45] VITALS: BP 147/82; PULSE 68; RESP 17; TEMP 37; O2SAT 96
== END 2023-09-18 23:46 | disposition home or self-care (01) ==
PROVIDERS: Physician Assistant; Emergency Provider Emergency Medicine Emergency Medical Services
DX: G93.5 Compression of brain (principal); R51.9 Headache, unspecified; H53.8 Other visual disturbances; R20.0 Anesthesia of skin; H53.143 Visual discomfort, bilateral; Z79.899 Other long term (current) drug therapy
CPT/HCPCS: 36415; 70450; 80048; 80076; 83735; 84484; 85025; 85610; 99284

== ENCOUNTER 2023-12-13 18:53 | Emergency (ER) | payer OTHER, SELFPAY ==
--- NOTE | ~2023-12-13 | CT_ITS ---
EXAMINATION: CT HEAD WITHOUT CONTRAST CLINICAL INFORMATION: Headaches. COMPARISON: Multiple prior head CTs dating back to 02/16/2021, most recent dated 09/18/2023. TECHNIQUE: Contiguous axial imaging was performed from the skullbase to vertex without intravenous administration of contrast. This CT examination was performed using dose optimization techniques as appropriate, variously including the following: *Automated exposure control *Adjustment of mA and/or kV according to patient size (this includes techniques or standardized protocols for targeted exams where dose is matched to indication/reason for exam; i.e. extremities or head) *Use of iterative reconstruction technique DLP: 624 mGy-cm. FINDINGS: As seen on prior imaging, the cerebellar tonsils are low in position, approximately 7 mm caudal to level of foramen magnum. There is mild crowding of the cerebellar tonsils around the lower brainstem. An empty sella is again visible. There is no evidence of acute intracranial hemorrhage or territorial infarction. No abnormal mass effect or midline shift is seen. Langford to white matter differentiation is well preserved. No extra-axial fluid collections are identified. The ventricles are normal in size. There is no abnormal attenuation within the brain parenchyma. The osseous structures and soft tissues are normal. The mastoid air cells and visualized portions of the paranasal sinuses are well aerated. CT/CT head/brain wo IV con IMPRESSION: No acute intracranial pathology. Stable low lying cerebellar tonsils and an empty sella. Findings can be seen in the setting of a developmental Chiari I malformation or acquired intracranial hypertension; clinical correlation is recommended.
[2023-12-13 19:10] VITALS: BP 150/95; PULSE 76; RESP 18; TEMP 36.9; O2SAT 100; BMI 46.4
--- NOTE | 2023-12-13 19:14 | ED_ITS ---
HPI - General Adult General Chief complaint: Headache Stated complaint: high bp, nausea, dizziness, headache Time Seen by Provider: 12/13/23 21:30 Source: patient Mode of arrival: ambulatory Limitations: no limitations History of Present Illness HPI narrative: Patient comes to the emergency room complaining of headache. Patient is known to have a Chiari 1 malformation. Patient has been seen by Neurology and Neurosurgery. Patient states that she has been having intermittent headaches for about a year now. Patient denies chest pain or shortness of breath. Patient complaining of photophobia. Patient states that she has been taking Tylenol at home. Also, it was noted that patient's blood pressure was a bit elevated in triage. Patient states that her primary care physician started her on medications but she has not taking them because she is under the impression that neurosurgery does not want her to take any blood pressure medications so they can get their studies done. Related Data Previous Rx's ?Medication ?Instructions ?Recorded metoclopramide HCl 10 mg tablet 10 mg PO Q6H PRN nausea and 02/21/21 (Reglan) vomiting #14 tabs ketorolac 10 mg tablet 10 mg PO TID PRN pain 5 days #15 09/05/22 tabs morphine 15 mg immediate release 15 mg PO Q6H PRN pain #10 tabs 09/18/23 tablet ketorolac 10 mg tablet 10 mg PO Q8H #10 tabs 12/13/23 metoclopramide HCl 10 mg tablet 10 mg PO .T.i.d. PRN nausea and 12/13/23 (Reglan) vomiting #10 tabs Allergies Allergy/AdvReac Type Severity Reaction Status Date / Time PEANUT BUTTER Allergy Severe HIVES AND Uncoded 12/13/23 19:13 DIFFICULTY BREATHING Peanuts Butter Allergy Unknown Hives Uncoded 12/13/23 19:13 Review of Systems 2 Review of Systems: Constitutional : No Weight loss, No Fever, No Chills, No Night Sweats, No Fatigue, No Malaise ENT/Mouth : No Hearing loss, No Ear Pain, No Nasal Congestion, No Sinus Pain, No Hoarseness, No sore throat, No Rhinorrhea, No Swallowing Difficulty Eyes: Complaining of photophobia, No Eye Pain, No Swelling, No Redness, No Foreign Body, No Discharge, No Vision Changes Cardiovascular : No Chest Pain, No SOB, No Dyspnea on Exertion, No Orthopnea, No Edema, No Palpitations Respiratory : No Cough, No Sputum, No Wheezing, No Smoke Exposure, No Dyspnea Gastrointestinal : No Nausea, No Vomiting, No Diarrhea, No Constipation, No abdominal Pain, No Hematochezia, No Melena Genitourinary : no irregular bleeding, No Dysuria, No Urinary Frequency, No Hematuria, No Urinary Incontinence, No Urgency, No Flank Pain, No Urinary Flow Changes, No Hesitancy Musculoskeletal : No joint pain, No Myalgias, No Joint Swelling Skin : No Skin Lesions, No rash Neuro : No Weakness, No Numbness, No Paresthesias, No Loss of Consciousness, No Dizziness, complaining of recurrent migraine Psych : No Anxiety/Panic, No Depression, No SI/HI/AH/VH, No Social Issues, Heme/Lymph: No Bruising, No Bleeding,No Lymphadenopathy Endocrine : No Polyuria, No Polydipsia, No Temperature Intolerance PMFSH Past Medical History Medical History Chiari malformation type I No known health problems Social History Social History Alcohol intake: never Patient Tobacco Use Status: Never used Tobacco Advance Directives: No Advance Directives Information Provided: No Physical Exam ED Vital Signs: Vital Signs - 24 hr 12/13/23 19:10 12/13/23 22:21 Temperature 98.4 F 97.8 F Pulse Rate 76 64 Respiratory Rate 18 16 Blood Pressure 150/95 H 132/76 Pulse Oximetry 100 100 Oxygen Delivery Method Room Air Room Air BMI result Body Mass Index 46.4 Const Other: Appearance: Alert. Oriented X3. No acute distress. Well-appearing Eyes: Pupils equal, round and reactive to light. ENT: Pharynx normal. Neck: Normal inspection. Neck supple. No lymph nodes noted. No crepitus, no rigidity CVS: Normal heart rate and rhythm. Pulses normal. Normal S1 and S2 Respiratory: No respiratory distress. Breath sounds normal. No Wheezing. No rales Abdomen: Soft and nontender. No rigidity. No distention. Skin: Skin warm and dry. Normal skin color. Normal skin turgor. Extremities: No lower extremity edema. No Lacerations. No Rash Neuro: Oriented X 3. No motor deficit. No sensory deficit. Moving all extremities. No slurred speech. CN 2 through 12 grossly intact Psych: calm, cooperative, normal affect Course Course Course Narrative: This is an RME: Additional HPI, ROS, PE not included below will be deferred to primary provider.33-year-old female history of seizures, Chiari 1 malformation who presents emergency department for evaluation of headacheX 4 years. States constant ressure on the back of her head. Intermittent blurred vision, photophobia and phonophobia associated with her headaches. She states that occasionally both arms & fingers get numb. She states that today her neuro surgeon told her to come in today. Meeting with surgeon in [place] next month December [address] . She denied fever, chills, nausea, vomiting, cough. The patient was seen in the emergency department several times in the past (02/16/2021, 02/21/2021 , 09/05/2022, and 09/18/2023) Medications Administered Discontinued Medications Generic Name Dose Route Start Last Admin Trade Name Freq PRN Reason Stop Dose Admin Diphenhydramine HCl 25 mg 12/13/23 21:45 12/13/23 22:13 Diphenhydramine Hcl 50 Mg/Ml Vial IVPUSH 12/13/23 21:46 25 mg ONCE ONE Administration Sodium Chloride 1,000 mls @ 999 mls/hr 12/13/23 21:45 12/13/23 22:13 Ns IVCONT 12/13/23 22:45 999 mls/hr .Q1H1M ONE Administration Ketorolac Tromethamine 30 mg 12/13/23 21:45 12/13/23 22:13 Ketorolac Tromethamine 30 Mg/Ml Vial IVPUSH 12/13/23 21:46 30 mg ONCE ONE Administration Metoclopramide HCl 10 mg 12/13/23 21:45 12/13/23 22:13 Metoclopramide Hcl 10 Mg/2 Ml Vial IVPUSH 12/13/23 21:46 10 mg ONCE ONE Administration Medical Decision Making Medical Decision Making [facility] Narrative: -my interpretation of CT of the head: No acute intracranial bleed. Report from Radiology: No intracranial pathology, care malformation seems once again -for symptomatic treatment patient receiving normal saline, IV ketorolac, Reglan and Benadryl. Lab Data [facility] Lab Attestation statement: I reviewed the patient's lab results. 12/13/23 19:22 12/13/23 19:21 Labs: Lab Results 12/13/23 12/13/23 Range/Units 19:21 19:22 WBC 9.7 (4.8-10.8) X10*3/uL RBC 4.67 (4.20-5.50) X10*6/uL Hgb 14.1 (12.0-16.0) g/dl Hct 41.5 (37.0-47.0) % MCV 88.9 (80.0-98.0) fL MCH 30.2 (27.0-33.0) pg MCHC 34.0 (31.0-35.0) g/dl RDW 13.1 (11.0-16.0) % Plt Count 218 (160-400) X10*3/uL MPV 10.1 (9.4-12.3) fL Immature Gran % (Auto) 0.3 (0.0-0.4) % Neut % (Auto) 73.6 H (45-73) % Lymph % (Auto) 18.5 L (20-40) % Chicot % (Auto) 6.2 (2-11) % Eos % (Auto) 1.0 (0-4) % Baso % (Auto) 0.4 (0-2) % Lymph # (Auto) 1.8 (1.2-4.9) X10*3/uL [place]icot # (Auto) 0.6 (0.1-1.2) X10*3/uL Eos # (Auto) 0.1 (0.0-0.4) X10*3/uL Baso # (Auto) 0.0 (0.0-0.2) X10*3/uL Abs Immat Gran (auto) 0.03 (0.00-0.03) X10*3/uL Absolute Neuts (auto) 7.1 (2.0-8.3) x10*3/uL Absolute Nucleated RBC 0.000 (0.0-0.012) X10*3/uL Nucleated RBC % (auto) 0.0 (0.0-0.2) /100WBC ESR 28 H (0-20) MM/HR Sodium 139 (135-145) mmol/L Potassium 3.4 (3.3-5.1) mmol/L Chloride 108 (96-108) mmol/L Carbon Dioxide 26 (22-29) mmol/L Anion Gap 8 L (12-20) BUN 11 (9-16) mg/dL Creatinine 0.76 (0.5-1.4) mg/dL Estim Creat Clear Calc 114.5 Estimated GFR > 60 Random Glucose 86 (60-115) mg/dL Calcium 9.0 (8.4-10.2) mg/dL Total Bilirubin 0.7 (0.0-1.0) mg/dL AST 16 (5-31) U/L ALT 15 (0-31) U/L Alkaline Phosphatase 74 (39-117) U/L C-Reactive Protein 0.63 H (< or = 0.50) mg/dL Total Protein 7.4 (6.5-8.0) g/dL Albumin 4.0 (3.5-5.0) g/dL Independent Interpretation I performed an independent interpretation of an: CT Scan Radiology Impression Discussion of test interpretation with radiology: I have reviewed the radiologist's reading. Radiologist Impression: FINDINGS: As seen on prior imaging, the cerebellar tonsils are low in position, approximately 7 mm caudal to level of foramen magnum. There is mild crowding of the cerebellar tonsils around the lower brainstem. An empty sella is again visible. There is no evidence of acute intracranial hemorrhage or territorial infarction. No abnormal mass effect or midline shift is seen. Langford to white matter differentiation is well preserved. No extra-axial fluid collections are identified. The ventricles are normal in size. There is no abnormal attenuation within the brain parenchyma. The osseous structures and soft tissues are normal. The mastoid air cells and visualized portions of the paranasal sinuses are well aerated. CT/CT head/brain wo IV con IMPRESSION: No acute intracranial pathology. Stable low lying cerebellar tonsils and an empty sella. Findings can be seen in the setting of a developmental Chiari I malformation or acquired intracranial hypertension; clinical correlation is recommended. Discharge Plan Discharge Clinical Impression: Migraine Patient Disposition: Home, Self-Care Instructions: Migraine Headache (ED) Additional Instructions: Please follow-up with your primary care physician tomorrow. If you have any worsening or new symptoms, please return to the emergency room or call 911 Prescriptions: New ketorolac 10 mg tablet 10 mg PO Q8H Qty: 10 0RF Rx Instructions: maximum total duration of 5 days from all oral, intranasal, or parenteral formulations metoclopramide HCl [Reglan] 10 mg tablet 10 mg PO .T.i.d. PRN (Reason: nausea and vomiting) Qty: 10 0RF No Action metoclopramide HCl [Reglan] 10 mg tablet 10 mg PO Q6H PRN (Reason: nausea and vomiting) Qty: 14 0RF ketorolac 10 mg tablet 10 mg PO TID PRN (Reason: pain) 5 Days Qty: 15 0RF Rx Instructions: Tolerated IM in the department morphine 15 mg tablet 15 mg PO Q6H PRN (Reason: pain) Qty: 10 0RF Rx Instructions: The patient may ask for partial fill; Partial Fill upon patient request. Stand Alone Forms: Work/School Release Print Language: Bengali
--- NOTE | 2023-12-13 19:22 | MHC.EDTECH ---
Patient brought to triage area,labs drawn and sent to lab,patient refused Sars/flu/rsv,triage CURT Rogers made aware.
[2023-12-13 19:30] LABS: MANUAL DIFF FLAG NO
[2023-12-13 19:34] LABS: Basophils Percent Auto 0.4 % (0-2); Eosinophils Absolute Auto 0.1 X10*3/uL (0.0-0.4); Hematocrit 41.5 % (37.0-47.0); Hemoglobin 14.1 g/dl (12.0-16.0); Imm Gran Abs Auto 0.03 X10*3/uL (0.00-0.03); Imm Gran Pct Auto 0.3 % (0.0-0.4); Lymphocytes Absolute Auto 1.8 X10*3/uL (1.2-4.9); Lymphocytes Percent Auto 18.5 % (20-40); Mean Corpuscular Hemoglobin 30.2 pg (27.0-33.0); Mean Corpuscular Volume 88.9 fL (80.0-98.0); Mean Platelet Volume 10.1 fL (9.4-12.3); Monocytes Absolute Auto 0.6 X10*3/uL (0.1-1.2); Monocytes Percent Auto 6.2 % (2-11); Neutrophils Absolute Auto 7.1 x10*3/uL (2.0-8.3); Neutrophils Percent Auto 73.6 % (45-73); Platelet Count 218 X10*3/uL (160-400); Red Blood Count 4.67 X10*6/uL (4.20-5.50); Red Cell Distribution Width 13.1 % (11.0-16.0); White Blood Count 9.7 X10*3/uL (4.8-10.8)
[2023-12-13 19:48] LABS: Alanine Aminotransferase 15 U/L (0-31); Alkaline Phosphatase 74 U/L (39-117); Anion Gap 8 (12-20); Aspartate Amino Transferase 16 U/L (5-31); Bilirubin Total 0.7 mg/dL (0.0-1.0); Blood Urea Nitrogen 11 mg/dL (9-16); C Reactive Protein 0.63 mg/dL (< or = 0.50); Carbon Dioxide 26 mmol/L (22-29); Chloride 108 mmol/L (96-108); Creatinine Clr Calc Pharmacy 114.5; Estimated Glomerular Filt Rate > 60; Glucose Random 86 mg/dL (60-115); Potassium 3.4 mmol/L (3.3-5.1); Sodium 139 mmol/L (135-145); Total Protein 7.4 g/dL (6.5-8.0)
[2023-12-13 20:14] LABS: Erythrocyte Sedimentation Rate 28 MM/HR (0-20)
[2023-12-13] MEDS: Metoclopramide HCl 10 MG/2 ML VIAL IVPUSH (22:13)
[2023-12-13] MEDS: diphenhydrAMINE HCL 50 MG/ML VIAL 25 MG IVPUSH (22:13)
[2023-12-13] MEDS: 0.9 % Sodium Chloride 1,000 ML 999 ML IVCONT (22:13)
[2023-12-13] MEDS: Ketorolac Tromethamine 30 MG/ML VIAL IVPUSH (22:13)
[2023-12-13 22:21] VITALS: BP 132/76; PULSE 64; RESP 16; TEMP 36.6; O2SAT 100
[2023-12-14 00:21] VITALS: BP 132/76; PULSE 64; RESP 16; TEMP 36.6; O2SAT 100
== END 2023-12-14 00:22 | disposition home or self-care (01) ==
PROVIDERS: Physician Assistant; Emergency Provider Emergency Medicine
DX: G43.909 Migraine, unspecified, not intractable, without status migrainosus (principal)
CPT/HCPCS: 70450; 80053; 85025; 85652; 86140; 96361; 96374; 96375; 99284; J1200; J1885; J2765

== ENCOUNTER 2024-05-18 08:56 | Emergency (ER) | payer OTHER, SELFPAY ==
--- NOTE | ~2024-05-18 | XR_ITS ---
EXAMINATION: XR RIGHT FOOT XR RIGHT ANKLE CLINICAL INFORMATION: Pain after injury. COMPARISON: None available. TECHNIQUE: 2 views of the right ankle were obtained. 3 views of the right foot were obtained. FINDINGS: Alignment is anatomic. Joint spaces are preserved. Talar dome is intact. Pes cavus. No displaced fracture or dislocation. XR/XR ankle RT 2V IMPRESSION: No acute abnormality. Electronically signed by: Rosendo Zee MD 05/18/2024 11:40 AM EDT
--- NOTE | ~2024-05-18 | XR_ITS ---
EXAMINATION: XR RIGHT FOOT XR RIGHT ANKLE CLINICAL INFORMATION: Pain after injury. COMPARISON: None available. TECHNIQUE: 2 views of the right ankle were obtained. 3 views of the right foot were obtained. FINDINGS: Alignment is anatomic. Joint spaces are preserved. Talar dome is intact. Pes cavus. No displaced fracture or dislocation. XR/XR foot RT min 3V IMPRESSION: No acute abnormality. Electronically signed by: Rosendo Zee MD 05/18/2024 11:40 AM EDT
[2024-05-18 09:37] VITALS: BP 139/92; PULSE 77; RESP 18; TEMP 36.9; O2SAT 98; BMI 46.4
--- NOTE | 2024-05-18 12:29 | ED.GENADULT ---
HPI - General Adult General Chief complaint: Extremity Injury, Lower Stated complaint: r foot inj Time Seen by Provider: 05/18/24 11:58 Source: patient Mode of arrival: ambulatory Limitations: no limitations History of Present Illness ED Provider: SUSI LOMAX PA-C HPI narrative: 33 yo female with no significant pmhx presents to ED today with right ankle/ foot pain s/p fall while trying to separate her dog and the neighbors dog during a dog fight. She is unable to recall details as it happened so quickly, however spouse is at the bedside providing supporting information. States she rolled the right ankle during the fall and scraped her right side her foot upon landing. The dogs did not bite her. Reports abrasions to 4th and 5th lateral toes. Pain on flexion and ambulation, pain radiating into the calf and along the sides in the achilles area on foot flexion/walking. Has tried 1x dose Tylenol with minimal improvement. states she was uncomfortable trying to sleep last night and decided to be evaluated. Denies fever, chills, numbness/tingling/weakness of the RLE. Related Data Previous Rx's ?Medication ?Instructions ?Recorded metoclopramide HCl 10 mg tablet 10 mg PO Q6H PRN nausea and 02/21/21 (Reglan) vomiting #14 tabs ketorolac 10 mg tablet 10 mg PO TID PRN pain 5 days #15 09/05/22 tabs morphine 15 mg immediate release 15 mg PO Q6H PRN pain #10 tabs 09/18/23 tablet ketorolac 10 mg tablet 10 mg PO Q8H #10 tabs 12/13/23 metoclopramide HCl 10 mg tablet 10 mg PO .T.i.d. PRN nausea and 12/13/23 (Reglan) vomiting #10 tabs Allergies Allergy/AdvReac Type Severity Reaction Status Date / Time PEANUT BUTTER Allergy Severe HIVES AND Uncoded 05/18/24 09:40 DIFFICULTY BREATHING Peanuts Butter Allergy Unknown Hives Uncoded 05/18/24 09:40 Review of Systems Review of Systems: Constitutional: No fever, chills, fatigue, night sweats, weight changes ENT/Mouth: No ear pain, hearing loss, nasal congestion, sinus pain, rhinorrhea, sore throat Eyes: No eye pain, swelling, redness, vision changes, discharge Cardio: No chest pain, palpitations, COOL, orthopnea, peripheral edema Pulm: No SOB, cough, sputum, wheezing, dyspnea, hemoptysis GI: No nausea, vomiting, hematemesis, abdominal pain, diarrhea, constipation, hematochezia, melena : No irregular bleeding, dysuria, frequency, urgency, hesitancy, hematuria, flank pain, urinary flow changes, urinary incontinence or retention MSK: No back pain, neck pain, joint pain, myalgias, +right foot/ankle pain Skin: No lesions, rashes Neuro: No weakness, numbness, paresthesias, LOC, dizziness, headache Psych: No anxiety/panic, depression, SI/HI, AH/VH All other systems reviewed and are negative. [facility] Past Medical History Attestation statement: The following information was validated with the patient. Source: old records reviewed and nursing notes reviewed Medical History Chiari malformation type I No known health problems Social History Social History Alcohol intake: never Patient Tobacco Use Status: Never used Tobacco Advance Directives: No Advance Directives Information Provided: Yes Physical Exam ED Vital Signs: Vital Signs - 24 hr 05/18/24 09:37 Temperature 98.5 F Pulse Rate 77 Respiratory Rate 18 Blood Pressure 139/92 H Pulse Oximetry 98 Oxygen Delivery Method Room Air BMI result Body Mass Index 46.4 hypertensive, vitals otherwise wnl General: Well appearing, in no acute distress. Skin: Warm, dry, intact. No rashes or lesions. Head: Normocephalic, atraumatic. EENT: Hearing is intact b/l. Conjunctiva clear. Sclera is anicteric. PERRLA. EOM intact. Moist mucous membranes.? Neck: Supple without LAD Cardiac: Chest wall symmetric. RRR. No MRG. No JVD. Lungs: Normal respiratory effort without accessory muscle use. CTA bilaterally. Ext: +minimal swelling noted to lateral aspect of right ankle. No overlying skin changes or obvious deformity. There are 2 small abrasions noted to right 5th toe. Slightly tender to palpation without palpable deformity. No warmth. Negative Willson test on right. No calf tenderness. 2+ PT/DP pulse intact. Ambulating with steady gait. Neuro: AOx3. Normal speech. Ambulating with steady gait. Psych: Appropriate mood and affect. Responds appropriately to questions. Course Course Course Narrative: 1314 -- x-rays do not demonstrate fracture or dislocation. Patient provided with Aircast. Advised to take Tylenol and ibuprofen at home as needed. Educated on RICE therapy. Patient has remained stable throughout ED visit today. Discussed worrisome signs and symptoms and when to return to the ED. All questions answered at this time. Patient is agreeable with disposition and stable for discharge. Procedures Orthopedic Splinting/Casting Injury #1: Side: right Lower Extremity Injury Location: ankle Lower Extremity Immobilizer: AirCast Medical Decision Making Medical Decision Making MDM Narrative: 33 yo female with no significant pmhx presents to ED today with right ankle/ foot pain s/p fall while trying to separate her dog and the neighbors dog during a dog fight. Slightly hypertensive to 139/92, vitals otherwise WNL afebrile. She is nontoxic-appearing and in no acute distress. On exam, minimal swelling noted to lateral aspect of right ankle. No overlying skin changes or obvious deformity. There are 2 small abrasions noted to right 5th toe. Slightly tender to palpation without palpable deformity. No warmth. Negative Willson test on right. No calf tenderness. 2+ PT/DP pulse intact. Ambulating with steady gait. Differential diagnosis includes MSK sprain/strain, contusion, abrasion, fracture, arthritis. Lower suspicion for dislocation. Presentation not consistent with gout, pseudogout, neurovascular compromise, threat to limb, compartment syndrome. Plan for imaging and re-evaluation. Differential Diagnosis Differential Diagnoses: The differential diagnosis associated with the presentation includes As above Admission/Observation Not indicated Independent Interpretation I performed an independent interpretation of an: Plain X-Ray Interpretation: X-ray right foot/ankle without acute fracture, agree with radiologist's interpretation. Radiology Impression Discussion of test interpretation with radiology: I have reviewed the radiologist's reading. Radiologist Impression: EXAMINATION: XR RIGHT FOOT XR RIGHT ANKLE CLINICAL INFORMATION: Pain after injury. COMPARISON: None available. TECHNIQUE: 2 views of the right ankle were obtained. 3 views of the right foot were obtained. FINDINGS: Alignment is anatomic. Joint spaces are preserved. Talar dome is intact. Pes cavus. No displaced fracture or dislocation. XR/XR foot RT min 3V IMPRESSION: No acute abnormality. Electronically signed by: Rosendo Zee MD 05/18/2024 11:40 AM EDT RP EXAMINATION: XR RIGHT FOOT XR RIGHT ANKLE CLINICAL INFORMATION: Pain after injury. COMPARISON: None available. TECHNIQUE: 2 views of the right ankle were obtained. 3 views of the right foot were obtained. FINDINGS: Alignment is anatomic. Joint spaces are preserved. Talar dome is intact. Pes cavus. No displaced fracture or dislocation. XR/XR ankle RT 2V IMPRESSION: No acute abnormality. Electronically signed by: Rosendo Zee MD 05/18/2024 11:40 AM EDT RP Independent Historian Clinical information obtained from an independent historian. History obtained from or confirmed by: Spouse External Record Review External record reviewed: Inpatient record Prescription Management I considered prescription management with: Pain Medication (Tylenol, Motrin) Social Determinants Patient?s care significantly limited by Social Determinants of Health including: Other Social Determinant of Health Critical Care Time Critical Care Time Critical Care Time: No Discharge Plan Discharge Clinical Impression: Right ankle sprain Patient Disposition: Home, Self-Care Instructions: R.I.C.E. Treatment (ED), Walking Boot (ED) Additional Instructions: You were evaluated in the Emergency Department today for your right ankle/ foot pain.? Your evaluation did not show signs of medical conditions requiring emergent intervention at this time. Use ice several times per day for 20 minutes at a time for the next 48 hours and then change to heat. I recommend you take 600mg ibuprofen every 6 hours or tylenol 650mg every 6 hours as needed for pain. If needed, you can alternate these medications so that you take one medication every 3 hours. For example, at noon take ibuprofen, then at 3pm take tylenol, then at 6pm take ibuprofen. You have been provided with an aircast for comfort. Please schedule an appointment for follow-up with your primary care provider this week for further evaluation of your symptoms. Return to the Emergency Department if you experience worsening back pain, difficulty walking, fevers, numbness, tingling, incontinence, or any other concerning symptoms. In the case of an emergency call 911. Prescriptions: No Action metoclopramide HCl [Reglan] 10 mg tablet 10 mg PO Q6H PRN (Reason: nausea and vomiting) Qty: 14 0RF ketorolac 10 mg tablet 10 mg PO TID PRN (Reason: pain) 5 Days Qty: 15 0RF Rx Instructions: Tolerated IM in the department morphine 15 mg tablet 15 mg PO Q6H PRN (Reason: pain) Qty: 10 0RF Rx Instructions: The patient may ask for partial fill; Partial Fill upon patient request. ketorolac 10 mg tablet 10 mg PO Q8H Qty: 10 0RF Rx Instructions: maximum total duration of 5 days from all oral, intranasal, or parenteral formulations metoclopramide HCl [Reglan] 10 mg tablet 10 mg PO .T.i.d. PRN (Reason: nausea and vomiting) Qty: 10 0RF Stand Alone Forms: Work/School Release Print Language: Macedonian
[2024-05-18 13:17] VITALS: BP 139/92; PULSE 77; RESP 18; TEMP 36.9; O2SAT 98
== END 2024-05-18 13:27 | disposition home or self-care (01) ==
PROVIDERS: Emergency Provider Emergency Medicine Emergency Medical Services
DX: S93.401A Sprain of unspecified ligament of right ankle, initial encounter (principal); S90.414A Abrasion, right lesser toe(s), initial encounter; W19.XXXA Unspecified fall, initial encounter; Y93.89 Activity, other specified; Y92.9 Unspecified place or not applicable; Y99.9 Unspecified external cause status; M79.671 Pain in right foot
CPT/HCPCS: 73600; 73630; 99283

== ENCOUNTER 2025-05-18 10:13 | Emergency (ER) | payer OTHER, SELFPAY ==
[2025-05-18 10:14] VITALS: BP 145/80; PULSE 93; RESP 18; TEMP 36.6; O2SAT 98; BMI 28.9
--- NOTE | 2025-05-18 10:15 | ED_ITS ---
HPI - General Adult General Chief complaint: Abdominal Pain Stated complaint: Lump/discomfort pelvic area Time Seen by Provider: 05/18/25 11:01 History of Present Illness ED Provider: Mikey Ba MD HPI narrative: This is a healthy 34-year-old female who comes in for evaluation of what she perceives as tender nodule in the inguinal region on the right side. She also noted that she has manually decompressed right lower labial ?cyst ?. 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 She denies dysuria flank pain right lower quadrant pain this is more in the inguinal region. Related Data Previous Rx's ?Medication ?Instructions ?Recorded metoclopramide HCl 10 mg tablet 10 mg PO Q6H PRN nause a and 02/21/21 (Reglan) vomiting #14 tabs ketorolac 10 mg tablet 10 mg PO TID PRN pain 5 days #15 09/05/22 tabs morphine 15 mg immediate release 15 mg PO Q6H PRN pain #10 tabs 09/18/23 tablet ketorolac 10 mg tablet 10 mg PO Q8H #10 tabs metoclopramide HCl 10 mg tablet 10 mg PO .T.i.d. PRN n ausea and 12/13/23 (Reglan) vomiting #10 tabs sulfamethoxazole 800 1 tab PO Q12H 5 days #10 tab s 05/18/25 mg-trimethoprim 160 mg tablet (Bactrim DS) Allergies Allergy/AdvReac Type Severity Reaction Status Date / Time PEANUT BUTTER Allergy Severe HIVES AND Uncoded 05/18/25 10:16 DIFFICULTY BREATHING Peanuts Butter Allergy Unknown Hives Uncoded 05/18/25 10:16 [facility] Past Medical History Medical History Chiari malformation type I No known health problems Social History Social History Alcohol intake: never Patient Tobacco Use Status: Never used Tobacco Advance Directives: No Advance Directives Information Provided: No Do you have a plan to hurt others: No Plan Physical Exam ED Exam Exam: EXAM: Gen: Alert, awake, well appearing, well hydrated. Head: Atraumatic Eyes: Anicteric, Normal conjunctiva. ENT: Moist mucosa, no pallor. ? Neck: Supple. Skin: ?No observable rash or bruising on exposed or examined skin Respiratory: Breathing comfortably, No distress.Clear to auscultation bilaterally, symmetric chest expansion, No wheeze, rales, ronchi. Cardiovascular: Regular rate and rhythm. No murmurs or rub. Well perfused periphery, warm extremities. No edema. ? Abdominal: No focal tenderness. Soft, no objective distension. No palpable masses or obvious organomegaly. ?No guarding, no rebound tenderness or other peritoneal findings. : No flank tenderness. Chaperoned by a female nurse aide cursory external exam: Very small indurated area likely a Bartholin cyst no expressible purulence the patient showed me a photo of this area draining purulence earlier in the day when she manually decompressed it. There was some pus at the superior aspect of the labia minora overlying the urethral meatus Neuro: Alert. Gross movement of all extremities intact. ? Psych: Calm. Cooperative. MSK: No grossly visible deformity. Vital signs: See flowsheet Vital Signs: Vital Signs - 24 hr 05/18/25 10:14 05/18/25 11:39 Temperature 98 F 97.6 F Pulse Rate 93 93 Respiratory Rate 18 18 Blood Pressure 145/80 H 145/80 H Pulse Oximetry 98 98 Oxygen Delivery Method Room Air Room Air BMI result Body Mass Index 28.9 Course Course Course Narrative: This is a Rapid Medical Examination (RME) performed by Oh Nuñez PA-C in triage. Full HPI, ROS, assessment and treatment plan per primary provider in the Main ED. Hx: 34 yo F hx of bartholins abscess here for eval of right sided pelvic pain x last night. worse w/ movement. states it feels like I have a lump inside . no urinary sx. no fever/chills. no recent heavy lifting. no hx ovarian cysts. Plan: labs, UA Medications Administered Discontinued Medications Generic Name Dose Route Start Last Admin Trade Name Freq PRN Reason Stop Dose Admin Trimethoprim/Sulfamethoxazole 1 tab 05/18/25 11:15 05/18/25 11:37 Sulfamethox/Trimeth 800/160 Tablet PO 05/18/25 11:16 1 tab ONCE ONE Administration Procedures Procedure Narrative Procedure Narrative: EMERGENCY ULTRASOUND INTERPRETATION-Limited Retroperitoneal (Renal) [This study was ordered, performed, and interpreted by myself. The study reveals: Impression: NO EVIDENCE OF UROLOGIC OBSTRUCTION] [Indication: FLANK PAIN Bladder: ANECHOIC URINE Right Kidney: NO HYDRONEPHROSIS Left Kidney: NO HYDRONEPHROSIS Performed by: Mikey Ba MD Images were stored CPT: 73014] Medical Decision Making Medical Decision Making MDM Narrative: Medical Decision Makin-year-old healthy female with right inguinal pain as the chief complain of presentation. This is likely reactive lymph node from the infected Bartholin's cyst which was manually expressed this morning. No indication at this time based on clinical exam to I and D this as she appears to have drained all of the active purulence. Although urinalysis suggests UTI given the clinical exam I think this is purulence that is mobilize the upward towards the urethral region. We will treat her for Bartholin gland abscess commercial loan collection officer follow up recommended Preliminary Favored Differential Diagnosis: UTI, pyelo, cystitis, Bartholin cyst/Bartholin abscess among additional considered etiologies Testing Interpreted Independently: ?See below for details Radiology or Lab testing Results Reviewed: ?See below for details Consults: ?See below for details Independent Historians/External Chart Reviews: ?See below for details Social Determinants of Health Impacting MDM/Planning: ?See below for details Lab Data MDM Lab Attestation statement: I reviewed the patient's lab results. 05/18/25 10:30 05/18/25 10:30 Labs: Lab Results 05/18/25 Range/Units 10:30 WBC 9.6 (4.8-10.8) X10*3/uL RBC 4.03 L (4.20-5.50) X10*6/uL Hgb 12.2 (12.0-16.0) g/dl Hct 36.5 L (37.0-47.0) % MCV 90.6 (80.0-98.0) fL MCH 30.3 (27.0-33.0) pg MCHC 33.4 (31.0-35.0) g/dl RDW 14.6 (11.0-16.0) % Plt Count 200 (160-400) X10*3/uL MPV 10.1 (9.4-12.3) fL Immature Gran % (Auto) 0.1 (0.0-0.4) % Neut % (Auto) 59.8 (45-73) % Lymph % (Auto) 32.8 (20-40) % [place] % (Auto) 6.4 (2-11) % Eos % (Auto) 0.6 (0-4) % Baso % (Auto) 0.3 (0-2) % Lymph # (Auto) 3.2 (1.2-4.9) X10*3/uL [place] # (Auto) 0.6 (0.1-1.2) X10*3/uL Eos # (Auto) 0.1 (0.0-0.4) X10*3/uL Baso # (Auto) 0.0 (0.0-0.2) X10*3/uL Abs Immat Gran (auto) 0.01 (0.00-0.03) X10*3/uL Absolute Neuts (auto) 5.7 (2.0-8.3) x10*3/uL Absolute Nucleated RBC 0.000 (0.0-0.012) X10*3/uL Nucleated RBC % (auto) 0.0 (0.0-0.2) /100WBC Sodium 141 (135-145) mmol/L Potassium 3.7 (3.3-5.1) mmol/L Chloride 109 H (96-108) mmol/L Carbon Dioxide 27 (22-29) mmol/L Anion Gap 9 L (12-20) BUN 10 (9-16) mg/dL Creatinine 0.62 (0.5-1.4) mg/dL Estim Creat Clear Calc 111.4 Estimated GFR > 60 Random Glucose 84 (60-115) mg/dL Calcium 9.1 (8.4-10.2) mg/dL Magnesium 2.0 (1.6-2.6) mg/dL Total Bilirubin 1.2 H (0.0-1.0) mg/dL AST 27 (5-31) U/L ALT 18 (0-31) U/L Alkaline Phosphatase 83 (39-117) U/L Total Protein 7.0 (6.5-8.0) g/dL Albumin 4.0 (3.5-5.0) g/dL Lipase 12 (8-78) U/L Urine Color Dark Yellow Urine Appearance Cloudy Urine pH 5.5 (5.0-9.0) Ur Specific Lorenzo >= 1.030 H (1.005-1.025) Urine Protein 30 (1+) H (Neg-Trace) mg/dL Urine Glucose (UA) Negative (Negative) mg/dL Urine Ketones Trace (Negative) mg/dL Urine Blood Moderate (2+) H (Negative) Urine Nitrite Negative (Negative) Ur Leukocyte Esterase Large (3+) H (Negative) Urine RBC >20 H (0-2) /HPF Urine WBC >50 H (0-5) /HPF Ur Squamous Epith Cells 6-10 (0-2) /HPF Urine Bacteria None Seen (None Seen) Hyaline Casts 3-5 (0-2) /LPF Urine Test NEGATIVE (NEGATIVE) Discharge Plan Discharge Clinical Impression: Abscess of Bartholin gland Patient Disposition: Home, Self-Care Instructions: Abscess Follow-up (ED) Additional Instructions: _ DISCHARGE DIAGNOSES: Bartholin gland abscess with infection HISTORY OF PRESENTATION: ?Abscess manually drained at home EMERGENCY DEPARTMENT COURSE,TESTS, TREATMENTS: While in the ED today you had a pelvic exam that is suggested an near complete drainage of Bartholin gland abscess. Urinalysis showed evidence of UTI but this is likely pus coming from the gland abscess obscuring or complicating the analysis DISCHARGE MEDICATIONS: ?Bactrim for 7 days FOLLOW-UP: ?Call your primary or general physician soon as possible to discuss your symptoms, your ED visit and to discuss follow up plans You must see your commercial loan collection officer in the next 2-4 days or after antibiotic course to evaluate for treatment effectiveness INSTRUCTIONS ?& RETURN PRECAUTIONS: If any symptoms change first call your primary physician, if it is after-hours your primary doctors office should have a provider transportation solutions manager you can speak with. If the symptoms are severe or very concerning to you then call 911 or return to the ED. [[id number]] Mikey Ba MD Emergency Physician [facility] Prescriptions: New sulfamethoxazole-trimethoprim [Bactrim DS] 800-160 mg tablet 1 tab PO Q12H 5 Days Qty: 10 0RF No Action metoclopramide HCl [Reglan] 10 mg tablet 10 mg PO Q6H PRN (Reason: nausea and vomiting) Qty: 14 0RF ketorolac 10 mg tablet 10 mg PO TID PRN (Reason: pain) 5 Days Qty: 15 0RF Rx Instructions: Tolerated IM in the department morphine 15 mg tablet 15 mg PO Q6H PRN (Reason: pain) Qty: 10 0RF Rx Instructions: The patient may ask for partial fill; Partial Fill upon patient request. ketorolac 10 mg tablet 10 mg PO Q8H Qty: 10 0RF Rx Instructions: maximum total duration of 5 days from all oral, intranasal, or parenteral formulations metoclopramide HCl [Reglan] 10 mg tablet 10 mg PO .T.i.d. PRN (Reason: nausea and vomiting) Qty: 10 0RF Interventions: ED Discharge Assessment Last Done: 05/18/25 11:39 Discharge Date/Time: 05/18/25 11:39 Print Language: Khmer
[2025-05-18 10:57] LABS: Calcium 9.1 mg/dL (8.4-10.2); Chloride 109 mmol/L (96-108); Potassium 3.7 mmol/L (3.3-5.1); Sodium 141 mmol/L (135-145)
[2025-05-18] MEDS: Sulfamethox/Trimeth 800/160 TABLET 1 TAB PO (11:37)
[2025-05-18 11:39] VITALS: BP 145/80; PULSE 93; RESP 18; TEMP 36.4; O2SAT 98
--- OUTSIDE RECORDS SUMMARY | 2025-05-18 13:39 | XMS_ITS | Clinical Summary ---
Author Organization 175 [facility] Address [address] [place] [address] Phone Care Team Providers Care Conveyor Mechanic Name Role Phone Yuni Manrique MD Primary Care Provider [phone] Allergies Active Allergy Reactions Criticality Noted Date Comments Peanut Butter Flavor Anaphylaxis High 09/24/2024 Rash and hives Medications acetaminophen (TYLENOL) 500 mg tablet Take 2 tablets (1,000 mg total) by mouth every 8 (eight) hours. 30 tablet 09/11/2024 Active wheat dextrin 3 gram/3.5 gram powder in packet Take 1 packet by mouth 1 (one) time each day. 30 packet 09/11/2024 Active simethicone (MYLICON) 80 mg chewable tablet Chew 1 tablet (80 mg total) every 6 (six) hours if needed for flatulence. 30 tablet 09/11/2024 Active oxyCODONE (ROXICODONE) 5 mg immediate release tablet Take 1 tablet (5 mg total) by mouth every 6 (six) hours if needed for moderate pain or severe pain. 12 tablet 09/26/2024 Active Active Problems Problem Noted Date Diagnosed Date Morbid (severe) obesity due to excess calories ([facility] V24, [facility] V28) 08/03/2024 Class 3 severe obesity with body mass index (BMI) of 40.0 to 44.9 in adult ([facility] V24, [facility] V28) 06/04/2024 Chiari malformation type I ([facility] V24, [facility] V28) 10/17/2023 Overview (06/04/2024): Last Assessment & Plan: Patient describes worsening daily posterior/occipital headaches that started approximately 4 years ago, after the of her son. She states the headaches are at least a constant 6/10, at times worse, for example she went to the emergency department at [facility] 09/18/2023 for severe headache. She notes blurry vision, especially if she is bending over to pick something up. She will get nausea on and off throughout the day, mostly mild. Occasionally she will notice some balance issues. When she has the pressure headache in the back of her head, at times she feels pain in her right throat, sometimes she gets a stabbing pain in the occiput. She denies any choking or swallowing issues. She has history of seizures at 14 years old, states they did an EEG and told her she only gets seizures while sleeping, she denies ever being on seizure medication. She does not recall ever seeing a neurologist. She also has not had an ophthalmology exam. Patient also has been having high blood pressure, is not on any blood pressure medicine. She cannot recall how high the blood pressure has been, but is keeping record for her PCP and writing it down at home. Patient had a head CT at [facility] 09/18/2023 with no evidence of acute intracranial hemorrhage or infarct, cerebellar tonsils were low-lying, up to 8 mm below the foramen magnum, similar to prior exam 09/05/2022 and 02/16/2021. I reviewed the head CT images with patient. Ms. El has daily progressively worsening headaches, blurry vision on and off, more recently mild balance issues. We can check cine flow C-spine MRI to see if her finding of Chiari malformation on Head CT is contributing to the headache. I also mentioned that another cause for chronic headaches could be pseudotumor cerebri, we recommend weight loss, if her cine flow study is negative we could consider LP to be done in radiology to check her opening and closing pressures, see if draining CSF helps her headache. We talked about potential treatment for both of these diagnoses if they are the source of her headaches, for example Chiari decompression for Chiari malformation, and Diamox versus LP shunt for pseudotumor cerebri. (There also has been recent studies using GLP-1 receptor agonist for pseudotumor cerebri/idiopathic intracranial hypertension, by reducing weight and acting on choroid plexus in the brain to lower CSF secretion and ICP). Patient should see neurology given her chronic headaches and past diagnosis of seizures, PCP already sent in referral. Patient also needs ophthalmology exam, rule out papilledema, check visual acuity and peripheral vision. She should follow-up with PCP to see if they recommend blood pressure medication for her high blood pressure, which may also help her headaches. All questions were answered. She will call with any concerns or questions. I will call her with results of her cine flow C-spine MRI once completed, after reviewing with Dr. Troy. Encounters Date Type Department Care Team Description 03/01/2025 5:32 PM EDT - 03/02/2025 1:06 AM EDT Emergency [facility] Emergency [address] [place] [address] Cornelio Hanley MD Landry, MD Irineo Brooks Scot A, MD Epigastric pain (Primary Dx) Discharge Disposition: Home or Self Care from Last 3 Months Immunizations Name Administration Dates Next Due Hepatitis B (Jscuoen-C-Xjsjo , Recombivax HB-Adult) 19yo and older 09/27/2017 MMR, measles mumps and rubel la Live (Priorix; M-M-R II) 12mo and older 09/27/2017 Pfizer SARS-CoV-2 COVID-19, mRNA, LNP-S, preservative free 05/28/2023 Tdap Tetanus diptheria acell ular pertussis (Boostrix; Adacel) 7yo and older 10/26/2019 Surgical History Surgery Date Site/Laterality Comments SECTION PROCEDURE: HISTORICAL DELIVERY Medical History Medical History Date Comments Obesity DX:Obesity HTN (hypertension) DX:HTN (hyper tension) Seizure disorder (CMS/HCC V24, CMS/HCC V28) as child Family History Medical History Relation Name Comments Hypertension Mother Breast cancer Paternal Grandmother Relation Name Status Comments Brother Alive 3 half brothers healthy Father Alive unknown Maternal Grandfather Maternal Grandmother Alive Mother Alive Paternal Grandmother Sister Alive 5 half from mot her and 14 half from father, all healthy as far as she knows Social History Tobacco Use Types Packs/Day Years Used Date Smoking Tobacco: Never Alcohol Use Standard Drinks/Week Comments Not Asked 0 (1 standard drink = 0.6 oz pur e alcohol) Interpersonal Safety Answer Date Record ed Physical Abuse 09/24/2024 Verbal Abuse 09/24/2024 Comments No Sex and Gender Information Value Date Recorded Sex Assigned at Female 09/08/2024 2:11 PM EST Legal Sex Female 4:08 AM EST Gender Identity Female 09/08/2024 2:11 PM EST Sexual Orientation Lesbian or Courtney 09/08/2024 2: 24 PM EST Obstetrics History Last Filed Vital Signs Vital Sign Reading Time Taken Comments Blood Pressure 128/81 03/01/2025 10:55 PM EDT Pulse 77 03/01/2025 10:55 PM EDT Temperature 36.7 C (98 F) 03/01/2025 10:55 PM EDT Respiratory Rate 18 03/01/2025 10:55 PM EDT Oxygen Saturation 98% 03/01/2025 10:55 PM EDT Inhaled Oxygen Concentration - - Weight 75.8 kg (167 lb) 03/01/2025 1:31 PM EDT Height 149.9 cm (4' 11 ) 03/01/2025 1:31 PM EDT Body Mass Index 33.73 03/01/2025 1:31 PM EDT Plan of Treatment Health Maintenance Due Date Last Done Comments Cervical Cancer Screening: P ap Smear 2013 Hepatitis B Vaccines (2 of 3 - 19+ 3-dose series) 10/25/2017 09/27/2017 HIV Screening 07/29/2022 Hepatitis C Screening 07/29/2022 Social Influencers of Health Screening 07/29/2022 Depression Screening 08/26/2024 10/29/2023 COVID-19 Vaccine (2 - 2024-2 6 season) 2025 05/28/2023 Influenza Vaccine (#1) 2025 Cholesterol Screening (Lipid Panel) 10/28/2028 10/29/2023 DTaP,Tdap,and Td Vaccines (2 - Td or Tdap) 10/25/2029 10/26/2019 MMR Vaccines Aged Out 09/27/2017 No longer eligi ble based on patient's age to complete this topic HIB Vaccines Aged Out No longer eligi ble based on patient's age to complete this topic HPV Vaccines Aged Out No longer eligi ble based on patient's age to complete this topic Hepatitis A Vaccines Aged Out No long er eligible based on patient's age to complete this topic IPV Vaccines Aged Out No longer eligi ble based on patient's age to complete this topic Meningococcal ACWY Vaccine Aged Out N o longer eligible based on patient's age to complete this topic Meningococcal B Vaccine Aged Out No l onger eligible based on patient's age to complete this topic Pneumococcal Vaccine: Pediat rics (0 to 5 Years) and At-Risk Patients (6 to 49 Years) Aged Out No longer eligi ble based on patient's age to complete this topic RSV Immunization Patients Un gwen 20 months Aged Out No longer eligible b ased on patient's age to complete this topic Varicella Vaccines Aged Out No longer eligible based on patient's age to complete this topic Procedures Procedure Name Priority Date/Time Associated Diagnosis Comments US ABDOMEN LIMITED STAT 03/01/2025 11 :[address] ABDOMEN PELVIS W CONTRAST STAT 03/01/2025 8:57 PM EDT POC , URINE DIAGNOSTIC STAT 03/01/2025 7:06 PM EDT CBC WITH AUTO DIFFERENTIAL STAT 03/01/2025 1:38 PM EDT LIPASE STAT 03/01/2025 1:38 PM EDT COMPREHENSIVE METABOLIC PANEL STAT 03/01/2025 1:38 PM EDT CBC AND DIFFERENTIAL STAT 03/01/2025 1:38 PM EDT HM DEPRESSION SCREENING Routine 10/29/2023 LIPID PANEL Routine 10/29/2023 from Last 3 Months or Most Recently Relevant to Health Maintenance Results * US Abdomen Limited (03/01/2025 11:26 PM EDT) Anatomical Region Laterality Modality Body Ultrasound 03/02/2025 12:0 6 AM EDT Impressions 03/02/2025 12:06 AM EDT 1. No gallstones or evidence for acute cholecystitis This document has been electronically signed by: Priscilla Huang MD on 03/02/2025 00:06:41 Narrative 03/02/2025 12:06 AM EDT INDICATION: RUQ pain Exam: Limited right upper quadrant abdominal ultrasound Comparison: None Clinical History: Right upper quadrant pain Findings: Selected images from a right upper quadrant ultrasound are provided for interpretation The liver is echogenic which may be reflective of fatty infiltration. No liver lesions are seen. Portal vein is patent with hepatopetal flow. No gallstones within the gallbladder. Gallbladder wall is not thickened at 1 mm. No pericholecystic fluid. Negative sonographic Fisher sign The common bile duct is not enlarged at 3 mm. No choledocholithiasis. The visualized pancreas has a normal appearance. Right kidney does not demonstrate any hydronephrosis or stones. No ascites seen. Procedure Note Priscilla Huang MD - 03/02/2025 INDICATION: RUQ pain Exam: Limited right upper quadrant abdominal ultrasound Comparison: None Clinical History: Right upper quadrant pain Findings: Selected images from a right upper quadrant ultrasound are provided for interpretation The liver is echogenic which may be reflective of fatty infiltration. No liver lesions are seen. Portal vein is patent with hepatopetal flow. No gallstones within the gallbladder. Gallbladder wall is not thickened at 1 mm. No pericholecystic fluid. Negative sonographic Fisher sign The common bile duct is not enlarged at 3 mm. No choledocholithiasis. The visualized pancreas has a normal appearance. Right kidney does not demonstrate any hydronephrosis or stones. No ascites seen. IMPRESSION: 1. No gallstones or evidence for acute cholecystitis This document has been electronically signed by: Priscilla Huang MD on 03/02/2025 00:06:41 us Cornelio Hanley MD IMG US PROCEDURES Final Result * CT Abdomen Pelvis w Contrast (03/01/2025 8:57 PM EDT) Anatomical Region Laterality Modality Body Computed Tomogra phy 03/01/2025 9:34 PM EDT Impressions 03/01/2025 9:34 PM EDT Impression: 1. No acute intra-abdominal process. 2. Prior gastric bypass. No bowel obstruction. This document has been electronically signed by: Priscilla Huang MD on 03/01/2025 21:34:16 Narrative 03/01/2025 9:34 PM EDT INDICATION: abd px sp WLS Exam: CT Abdomen and Pelvis with contrast Comparison: None Clinical history: Abdominal pain Findings: Prior gastric bypass The liver, spleen and pancreas do not demonstrate any acute process. No gallstones or gallbladder wall thickening to suggest acute cholecystitis No choledocholithiasis or biliary obstruction. Normal adrenal glands. No renal calculi or hydronephrosis. No abdominal aortic aneurysm. No small bowel obstruction Appendix is normal in caliber No colitis or diverticulitis. Urinary bladder does not demonstrate stones or wall thickening Uterus and adnexa have a normal appearance for CT. No free fluid Procedure Note Priscilla Huang MD - 03/01/2025 INDICATION: abd px sp WLS Exam: CT Abdomen and Pelvis with contrast Comparison: None Clinical history: Abdominal pain Findings: Prior gastric bypass The liver, spleen and pancreas do not demonstrate any acute process. No gallstones or gallbladder wall thickening to suggest acutecholecystitis No choledocholithiasis or biliary obstruction. Normal adrenal glands. No renal calculi or hydronephrosis. No abdominal aortic aneurysm. No small bowel obstruction Appendix is normal in caliber No colitis or diverticulitis. Urinary bladder does not demonstrate stones or wall thickening Uterus and adnexa have a normal appearance for CT. No free fluid IMPRESSION: Impression: 1. No acute intra-abdominal process. 2. Prior gastric bypass. No bowel obstruction. This document has been electronically signed by: Priscilla Huang MD on 03/01/2025 21:34:16 Cornelio Hanley MD IMG CT PROCEDURES Final Result * POC , urine manually resulted (03/01/2025 7:06 PM EDT) HCG, Ur POC Negative Negative POC hCG Int QC Pass? Yes Yes Urine Urine specimen obtained by clean catch procedure / Unknown 03/01/2025 7:06 PM EDT Paul Flannery MD POINT OF CARE TEST ENTER/EDIT O RDERABLES Final Result * (ABNORMAL) CBC auto differential (03/01/2025 1:38 PM EDT) [facility] WBC 7.1 4.8 - 10.8 K/mcL LAB HEMETOLOGY METHOD 03/01/2025 2:12 PM EDT [facility] RBC 4.40 3.80 - 4.80 M/mcL LAB HEMETOLOGY METHOD 03/01/2025 2:12 PM EDT [facility] Hemoglobin 12.8 11.5 - 16.0 g/dL LAB HEMETOLOGY METHOD 03/01/2025 2:12 PM EDT [facility] Hematocrit 38.8 35.0 - 47.0 % LAB HEMETOLOGY METHOD 03/01/2025 2:12 PM EDT [facility] MCV 87.8 79.0 - 98.0 FL LAB HEMETOLOGY METHOD 03/01/2025 2:12 PM EDT [facility] MCH 29.0 27.0 - 32.0 pcg LAB HEMETOLOGY METHOD 03/01/2025 2:12 PM EDT [facility] MCHC 33.0 32.0 - 37.0 g/dL LAB HEMETOLOGY METHOD 03/01[facility]2025 [facility] RDW 14.4 11.0 - 15.0 % LAB HEMETOLOGY METHOD 03/01/2025 2:12 PM EDT [facility] Platelets 253 130 - 400 K/mcL LAB HEMETOLOGY METHOD 03/01/2025 2:12 PM EDT [facility] MPV 11.5(H) 7.0 - 11.0 FL LAB HEMETOLOGY METHOD 03/01/2025 2:12 PM EDT [facility] NRBC 0.0 <1.0 % LAB HEMETOLOGY METHOD 03/01/2025 2:12 PM [facility] NRBC Absolute 0.00 <0.10 K/mcL LAB HEMETOLOGY METHOD 03/01/2025 2:12 PM [facility] Neutrophils Relative 67.0 % LAB HEMETOLOGY METHOD 03/01/2025 2:12 PM [facility] Lymphocytes Relative 23.8 % LAB HEMETOLOGY METHOD 03/01/2025 2:12 PM [facility] Monocytes Relative 7.2 % LAB HEMETOLOGY METHOD 03/01/2025 2:12 PM [facility] Eosinophils Relative 1.0 % LAB HEMETOLOGY METHOD 03/01/2025 2:12 PM [facility] Basophils Relative 0.6 % LAB HEMETOLOGY METHOD 03/01/2025 2:12 PM [facility] Immature Granulocytes Relative 0.4 % LAB HEMETOLOGY METHOD 03/01/2025 2:12 PM [facility] Neutrophils Absolute 4.72 1.50 - 7.00 K/mcL LAB HEMETOLOGY METHOD 03/01/2025 2:12 PM [facility] Lymphocytes Absolute 1.68 1.00 - 5.00 K/mcL LAB HEMETOLOGY METHOD 03/01/2025 2:12 PM [facility] Monocytes Absolute 0.51 0.20 - 1.00 K/mcL LAB HEMETOLOGY METHOD 03/01/2025 2:12 PM [facility] Eosinophils Absolute 0.07 0.00 - 0.50 K/mcL LAB HEMETOLOGY METHOD 03/01/2025 2:12 PM [facility] Basophils Absolute 0.04 0.00 - 0.20 K/mcL LAB HEMETOLOGY METHOD 03/01/2025 2:12 PM [facility] Immature Granulocytes Absolute 0.03 0.00 - 0.03 K/mcL LAB HEMETOLOGY METHOD 03/01/2025 2:12 PM EDT [facility] Blood Venous blood specimen / Unknown Venipuncture / Unknown 03/01/2025 1:38 PM EDT 03/01/2025 2:02 PM EDT us Paul Flannery MD LAB BLOOD ORDERABLES Final Resu lt Performing Organization Address [facility]/ZIP Co de Phone Number [facility] [address] [place] [address], [place] [phone] * Lipase (03/01/2025 1:38 PM EDT) Pathologist [facility] Lipase 17 13 - 75 unit/L LAB CHEMISTRY METHOD 03/01/2025 2:30 PM EDT [facility] Blood Venous blood specimen / Unknown Venipuncture / Unknown 03/01/2025 1:38 PM EDT 03/01/2025 2:02 PM EDT us Paul Flannery MD LAB BLOOD ORDERABLES Final Resu lt Performing Organization Address [facility] de Phone Number [facility] [address] [place] [address], [place] [phone] * Comprehensive metabolic panel (03/01/2025 1:38 PM EDT) Pathologist [facility] Sodium 142 133 - 145 mmol/L LAB CHEMISTRY METHOD 03/01/2025 2:30 PM EDT [facility] Potassium 3.8 3.5 - 5.5 mmol/L LAB CHEMISTRY METHOD 03/01/2025 2:30 PM EDT [facility] Chloride 108 96 - 110 mmol/L LAB CHEMISTRY METHOD 03/01/2025 2:30 PM EDT [facility] CO2 27 21 - 32 mmol/L LAB CHEMISTRY METHOD 03/01/2025 2:30 PM EDT [facility] Anion Gap 7 3 - 11 LAB CHEMISTRY METHOD 03/01/2025 2:30 PM [facility] Glucose 85 70 - 100 mg/dL LAB CHEMISTRY METHOD 03/01/2025 2:30 PM [facility] BUN 9 5 - 25 mg/dL LAB CHEMISTRY METHOD 03/01/2025 2:30 PM [facility] Creatinine 0.73 0.50 - 1.10 mg/dL LAB CHEMISTRY METHOD 03/01/2025 2:30 PM [facility] eGFR 112 >=60 mL/min/1. 73m2 LAB CHEMISTRY METHOD 03/01/2025 2:30 PM [facility] Comment:Calculation based on the Chronic Kidney Disease Epidemiology Collaboration (CKD-EPI) equation refit without adjustment for race. BUN/Creatinine Ratio 12.3 LAB CHEMISTRY METHOD 03/01/2025 2:30 PM [facility] Calcium 9.1 8.5 - 10.5 mg/dL LAB CHEMISTRY METHOD 03/01/2025 2:30 PM [facility] AST (SGOT) 15 10 - 42 unit/L LAB CHEMISTRY METHOD 03/01/2025 2:30 PM [facility] ALT (SGPT) 19 10 - 60 unit/L LAB CHEMISTRY METHOD 03/01/2025 2:30 PM [facility] Alkaline Phosphatase 77 42 - 121 unit/L LAB CHEMISTRY METHOD 03/01/2025 2:30 PM [facility] Total Protein 7.1 6.0 - 8.0 g/dL LAB CHEMISTRY METHOD 03/01/2025 2:30 PM [facility] Albumin 3.6 3.2 - 5.0 g/dL LAB CHEMISTRY METHOD 03/01/2025 2:30 PM [facility] Total Bilirubin 1.3 0.0 - 1.4 mg/dL LAB CHEMISTRY METHOD 03/01/2025 2:30 PM [facility] Blood Venous blood specimen / Unknown Venipuncture / Unknown 03/01/2025 1:38 PM EDT 03/01/2025 2:02 PM EDT Paul Flannery MD LAB BLOOD ORDERABLES Final Resu lt [facility] ([facility] [address] [place] [address], * Depression Screening (10/29/2023) Depression Screening abstracted Historical Provider HEALTH MAINTENANCE Final Result * Lipid panel (10/29/2023) LDL/HDL Ratio 3 0 - 4 Triglycerides 143 0 - 150 mg/dL Cholesterol 143 0 - 200 mg/dL HDL 44 >=40 mg/dL LDL Cholesterol 71 0 - 100 mg/dL Blood Venous blood specimen / Unknown Historical Provider LAB BLOOD ORDERABLES Demetrice l Result from Last 3 Months or Most Recently Relevant to Health Maintenance Insurance [facility] Advance Directives * Full Code - Default (Latest Code Status on File) Date Activated Date Inactivated Comments 09/24/2024 6:12 AM 09/26/2024 7:30 PM This is order is used when code status has not been discussed with the patient, or code status is otherwise unknown/unconfirmed To update the patient's code status, place a code status order. Do not modify or discontinue any currently active code status orders. Care Teams Conveyor Mechanic Relationship Specialty Start Date End Date Yuni Manrique MD [address] [place] [id number] PCP - General Internal Medicine 11/09/24
== END 2025-05-18 11:39 | disposition home or self-care (01) ==
PROVIDERS: Physician Assistant Medical; Emergency Provider Emergency Medicine
DX: N75.0 Cyst of Bartholin's gland (principal); R10.2 Pelvic and perineal pain; Z79.899 Other long term (current) drug therapy
CPT/HCPCS: 36415; 80053; 81001; 81025; 83690; 83735; 85025; 87086; 87147; 99282; 99283

== ENCOUNTER 2025-07-04 04:24 | Emergency (ER) | payer OTHER, SELFPAY ==
--- NOTE | ~2025-07-04 | CT_ITS ---
CLINICAL HISTORY: Right flank pain, hematuria, R O kidney stone, --- Additional Notes or Special Instructions: Pyelonephritis CT abdomen and pelvis without contrast Comparison: None provided Findings: The lung bases are clear. The liver, gallbladder, spleen, adrenal glands and pancreas demonstrate no acute process. No urinary calculus or obstructive uropathy. The bladder is partially distended. Probable small bilateral adnexal cysts. Trace free fluid in the cul-de-sac. There is no bowel obstruction or free air. The appendix is normal. No free fluid, abscess or adenopathy. No acute osseous finding. Impression: No definite acute process. No urinary calculus or obstructive uropathy. Small adnexal cysts are suggested. The appendix appears normal. This document has been electronically signed by: Tommy Johnson MD on 07/04/2025 09:53:20
[2025-07-04 04:39] VITALS: BP 133/78; PULSE 99; RESP 16; TEMP 36.4; O2SAT 99; BMI 27.3
[2025-07-04 05:01] LABS: MANUAL DIFF FLAG NO
[2025-07-04 05:10] LABS: Appearance Urine Turbid; Glucose Urine UA Negative (Negative); PH 6.0 (5.0-9.0); Specific Gravity - Urine >= 1.030 (1.005-1.025); UMIC TRIGGER UACC YES
[2025-07-04 05:19] LABS: Alanine Aminotransferase 14 U/L (0-31); Albumin Level 4.5 g/dL (3.5-5.0); Alkaline Phosphatase 85 U/L (39-117); Anion Gap 12 (12-20); Aspartate Amino Transferase 24 U/L (5-31); Blood Urea Nitrogen 15 mg/dL (9-16); Calcium 9.1 mg/dL (8.4-10.2); Carbon Dioxide 26 mmol/L (22-29); Chloride 107 mmol/L (96-108); Creatinine Clr Calc Pharmacy 103.4; Estimated Glomerular Filt Rate > 60; Hematocrit 41.3 % (37.0-47.0); Hemoglobin 13.5 g/dl (12.0-16.0); Imm Gran Abs Auto 0.03 X10*3/uL (0.00-0.03); Imm Gran Pct Auto 0.2 % (0.0-0.4); Lymphocytes Absolute Auto 4.1 X10*3/uL (1.2-4.9); Mean Corpuscular HGB Conc 32.7 g/dl (31.0-35.0); Mean Corpuscular Hemoglobin 29.4 pg (27.0-33.0); Mean Corpuscular Volume 90.0 fL (80.0-98.0); NRBC Abs Auto 0.000 X10*3/uL (0.0-0.012); NRBC Pct Auto 0.0 /100WBC (0.0-0.2); Platelet Count 235 X10*3/uL (160-400); Potassium 3.9 mmol/L (3.3-5.1); Red Blood Count 4.59 X10*6/uL (4.20-5.50); Sodium 141 mmol/L (135-145); Total Protein 7.5 g/dL (6.5-8.0); White Blood Count 12.7 X10*3/uL (4.8-10.8)
[2025-07-04 05:30] VITALS: BP 133/78; PULSE 99; RESP 16; TEMP 36.4; O2SAT 99
--- OUTSIDE RECORDS SUMMARY | 2025-07-04 05:38 | XMS_ITS | Clinical Summary ---
Author Organization 175 [facility] Address [address] [place] [address] Phone Care Team Providers Care Metal Room Dental Technician Name Role Phone Yuni Manrique MD Primary Care Provider [phone] Allergies Active Allergy Reactions Criticality Noted Date [...] Morbid (severe) obesity due to excess calories ([facility] V24, [facility] V28) 08/03/2024 Class 3 severe obesity with body mass index (BMI) of 40.0 to 44.9 in adult ([facility] V24, [facility] V28) 06/04/2024 Chiari malformation type I ([facility] V24, [facility] V28) 10/17/2023 Overview (06/04/2024): Last Assessment & Plan: Patient describes worsening daily posterior/occipital headaches that started approximately 4 years ago, after the of her son. She states the headaches are at least a constant 6/10, at times worse, for example she went to the emergency department at [facility] 09/18/2023 for severe headache. She notes blurry [...] home. Patient had a head CT at [facility] 09/18/2023 with no evidence of acute intracranial [...] once completed, after reviewing with Dr. Troy. Immunizations Immunization Administration Dates Next Due Hepatitis B ([id number]-B-Mybkp , Recombivax HB-Adult) 19yo and older 09/27/2017 [...] Safety Answer Date Record ed Physical Abuse Unrecognized value 09/24/2024 Verbal Abuse Unrecognized value 09/24/2024 Comments No Sex and Gender Information [...] 3 - 19+ 3-dose series) 10/25/2017 09/27/2017 HPV Vaccines (1 - 3-dose SCD M series) 2019 HIV Screening 07/29/2022 Hepatitis C Screening 07/29/2022 Social Influencers of Health Screening 07/29/2022 Depression Screening 08/26/2024 10/29/2023 COVID-19 Vaccine (2 - 2024-2 6 season) 2025 05/28/2023 Influenza Vaccine (#1) 2025 Cholesterol Screening (Lipid Panel) 10/28/2028 10/29/2023 DTaP,Tdap,and Td Vaccines (2 - Td or Tdap) 10/25/2029 10/26/2019 RSV Immunization Adult Patie nts (1 - 1-dose 75+ series) 2067 MMR Vaccines Aged Out 09/27/2017 No longer [...] Procedure Name Priority Date/Time Associated Diagnosis Comments DEPRESSION SCREENING Routine 10/29/2023 LIPID PANEL Routine 10/29/2023 from Last 3 Months or Most Recently Relevant to Health Maintenance Results * Depression Screening (10/29/2023) Depression Screening abstracted [...] Most Recently Relevant to Health Maintenance Insurance [facility] Advance Directives * Full Code - [...] currently active code status orders. Care Teams Metal Room Dental Technician Relationship Specialty Start Date End Date Yuni Manrique MD [address] [place], [place] [id number] PCP - General Internal Medicine 11/09/24
[2025-07-04 05:39] LABS: Other Crystals Urine Present; UACC Culture Trigger YES
--- NOTE | 2025-07-04 06:35 | ED.FEMALEGU ---
HPI - Female Genitourinary General Chief complaint: Urogenital-Female Stated complaint: abd pain Time Seen by Provider: 07/04/25 06:34 Source: patient Mode of arrival: ambulatory Limitations: no limitations History of Present Illness ED Provider: Dr. Taqueria Avendano HPI Narrative: 34-year-old female who presents emergency department for evaluation of lower abdominal pain/cramping and bloody urine. She states that the symptoms started this morning at 02:00 hours. The pain came on suddenly and got progressively worse. She states the pain is constant but waxes and wanes in intensity. The pain is 8.5/10 at its worst. She has also noted urinary frequency and dysuria. She also noticed bloody urine. Patient states the pain does radiate to her right flank. Her last menstrual period was 06/23/2025 and she states that she is not . Review of systems was negative for fever, chills, nausea, vomiting, diarrhea Related Data Previous Rx's ?Medication ?Instructions ?Recorded metoclopramide HCl 10 mg tablet 10 mg PO Q6H PRN nausea and 02/21/21 (Reglan) vomiting #14 tabs ketorolac 10 mg tablet 10 mg PO TID PRN pain 5 days #15 09/05/22 tabs morphine 15 mg immediate release 15 mg PO Q6H PRN pain #10 tabs 09/18/23 tablet ketorolac 10 mg tablet 10 mg PO Q8H #10 tabs 12/13/23 metoclopramide HCl 10 mg tablet 10 mg PO .T.i.d. PRN nausea and 12/13/23 (Reglan) vomiting #10 tabs sulfamethoxazole 800 1 tab PO Q12H 5 days #10 tabs 05/18/25 mg-trimethoprim 160 mg tablet (Bactrim DS) acetaminophen 500 mg tablet 1,000 mg (2 x 500 mg) PO Q6H PRN 07/04/25 (Tylenol Extra Strength) pain #20 tabs cefuroxime axetil 250 mg tablet 250 mg PO Q12H 5 days #10 tabs 07/04/25 ibuprofen 400 mg tablet 400 mg PO TID PRN fever or pain 07/04/25 #30 tabs phenazopyridine 200 mg tablet 200 mg PO TID PRN Burning with 07/04/25 (Pyridium) urination 3 days #9 tabs Allergies Allergy/AdvReac Type Severity Reaction Status Date / Time PEANUT BUTTER Allergy Severe HIVES AND Uncoded 07/04/25 04:42 DIFFICULTY BREATHING Peanuts Butter Allergy Unknown Hives Uncoded 07/04/25 04:42 Review of Systems Review of Systems: Yes all other systems are reviewed and are negative REPLACED BY [facility] Past Medical History REPLACED BY [facility] Narrative: Social history: She denies tobacco, alcohol and drug use Medical History Chiari malformation type I No known health problems Social History Social History Unable to assess alcohol history related to: Unknown Alcohol intake: never Patient Tobacco Use Status: Never used Tobacco Smoked in Last 30 Days: No Advance Directives: No Do you have a plan to hurt others: No Plan Patient : No Physical Exam Vital Signs: Vital Signs: Last Vital Signs Temp 97.5 F 07/04/25 05:30 Pulse 63 07/04/25 10:00 Resp 16 07/04/25 10:00 BP 103/66 07/04/25 10:00 Pulse Ox 98 07/04/25 10:00 O2 Del Method Room Air 07/04/25 10:00 BMI result Body Mass Index 27.3 Vital signs were unremarkable Exam: General: Awake, alert in no distress Head: Normocephalic, atraumatic EENT: PERRL, sclera and conjunctiva are normal, mouth with no erythema or exudates Neck: Supple, no adenopathy Lung: breath sounds symmetric, no wheezing, no rales and no rhonchi Chest: symmetric movement, nontender Heart: regular rate and rhythm, normal S1, S2 no murmurs or rubs Abdomen: soft, mild to moderate lower abdominal tenderness and suprapubic tenderness, nondistended, normal bowel sounds Back: no vertebral tenderness, mild right CVA tenderness Extremities: no deformities, moves all extremities symmetrically, no edema Neuro: Awake, alert, oriented, normal speech, cranial nerves 2-12 intact, moves all extremities symmetrically Psych: Pleasant, cooperative Medications Administered Discontinued Medications Generic Name Dose Route Start Last Admin Trade Name Freq PRN Reason Stop Dose Admin Sodium Chloride 1,000 mls @ 999 mls/hr 07/04/25 06:57 07/04/25 10:06 Ns IV 07/04/25 07:57 Infused .Q1H1M STA Infusion Ceftriaxone Sodium 1 gm/ 50 mls @ 100 mls/hr 07/04/25 09:22 07/04/25 10:06 Sodium Chloride IV 07/04/25 09:51 100 mls/hr ONCE ONE Administration Ketorolac Tromethamine 15 mg 07/04/25 06:57 07/04/25 07:35 Ketorolac Tromethamine 15 Mg/Ml Vial IVPUSH 07/04/25 06:58 15 mg ONCE STA Administration Medical Decision Making Medical Decision Making [facility] Narrative: 34-year-old female who presents emergency department for evaluation of lower abdominal pain/cramping and bloody urine. She states that the symptoms started this morning at 02:00 hours. The pain came on suddenly and got progressively worse. She states the pain is constant but waxes and wanes in intensity. The pain is 8.5/10 at its worst. She has also noted urinary frequency and dysuria. She also noticed bloody urine. Patient states the pain does radiate to her right flank. Her last menstrual period was 06/23/2025 and she states that she is not . Vital signs were unremarkable. Exam did reveal lower abdominal tenderness and right flank and CVA tenderness Differential diagnosis: ?Includes but is not limited to renal colic, ureteral colic, ureteral stone, pyelonephritis, urinary tract infection, pancreatitis, diverticulitis, appendicitis, anemia, electrolyte abnormalities Course: 10:24 My independent interpretation patient's laboratory evaluation is as follows: White blood count side 12,700. H&H was normal. CMP was normal. Beta-hCG was negative. Urinalysis was positive for blood, protein, leukocyte esterase and nitrates. Specific gravity was also elevated. Microscopic revealed greater than 20 RBCs, greater than 50 WBCs, trace bacteria. Labs are consistent with a urinary tract infection. CT scan of the abdomen pelvis without IV contrast did not reveal any significant finding. The patient was treated with ceftriaxone 1 g IV, Toradol 15 mg IV and normal saline x1 L. patient is feeling significantly better after this treatment. Clinically I suspect that the patient has a urinary tract infection with possible right-sided pyelonephritis. I prescribed cefuroxime 250 mg q.12 hours x5 days, Pyridium 200 mg 3 times a day x3 days as needed for dysuria. Ibuprofen 400 mg every 6 hours as needed for pain and Tylenol 1000 mg every 6 hours as needed for pain. She was also prescribed Pyridium 200 mg 3 times a day as needed for dysuria. She was given printed and verbal instructions and discharged home. Differential Diagnosis Differential Diagnoses: The differential diagnosis associated with the presentation includes (See above) Admission/Observation Consideration of admission/observation: Escalation of care including admission/observation considered (Yes) Lab Data MDM Lab Attestation statement: I reviewed the patient's lab results. 07/04/25 04:56 07/04/25 04:56 Labs: Lab Results 07/04/25 07/04/25 Range/Units 04:56 07:19 WBC 12.7 H (4.8-10.8) X10*3/uL RBC 4.59 (4.20-5.50) X10*6/uL Hgb 13.5 (12.0-16.0) g/dl Hct 41.3 (37.0-47.0) % MCV 90.0 (80.0-98.0) fL MCH 29.4 (27.0-33.0) pg MCHC 32.7 (31.0-35.0) g/dl RDW 13.4 (11.0-16.0) % Plt Count 235 (160-400) X10*3/uL MPV 10.8 (9.4-12.3) fL Immature Gran % (Auto) 0.2 (0.0-0.4) % Neut % (Auto) 60.1 (45-73) % Lymph % (Auto) 32.2 (20-40) % [place] % (Auto) 6.4 (2-11) % Eos % (Auto) 0.8 (0-4) % Baso % (Auto) 0.3 (0-2) % Lymph # (Auto) 4.1 (1.2-4.9) X10*3/uL [place] # (Auto) 0.8 (0.1-1.2) X10*3/uL Eos # (Auto) 0.1 (0.0-0.4) X10*3/uL Baso # (Auto) 0.0 (0.0-0.2) X10*3/uL Abs Immat Gran (auto) 0.03 (0.00-0.03) X10*3/uL Absolute Neuts (auto) 7.6 (2.0-8.3) x10*3/uL Absolute Nucleated RBC 0.000 (0.0-0.012) X10*3/uL Nucleated RBC % (auto) 0.0 (0.0-0.2) /100WBC Sodium 141 (135-145) mmol/L Potassium 3.9 (3.3-5.1) mmol/L Chloride 107 (96-108) mmol/L Carbon Dioxide 26 (22-29) mmol/L Anion Gap 12 (12-20) BUN 15 (9-16) mg/dL Creatinine 0.65 (0.5-1.4) mg/dL Estim Creat Clear Calc 103.4 Estimated GFR > 60 Random Glucose 92 (60-115) mg/dL Lactic Acid 1.8 (0.5-2.0) mmol/L Calcium 9.1 (8.4-10.2) mg/dL Total Bilirubin 1.1 H (0.0-1.0) mg/dL AST 24 (5-31) U/L ALT 14 (0-31) U/L Alkaline Phosphatase 85 (39-117) U/L Total Protein 7.5 (6.5-8.0) g/dL Albumin 4.5 (3.5-5.0) g/dL Beta HCG, Quant < 2 mIU/mL Urine Color RED Urine Appearance Turbid Urine pH 6.0 (5.0-9.0) Ur Specific [place] >= 1.030 H (1.005-1.025) Urine Protein 300 (3+) H (Neg-Trace) mg/dL Urine Glucose (UA) Negative (Negative) mg/dL Urine Ketones 15 (Negative) mg/dL Urine Blood Large (3+) H (Negative) Urine Nitrite Positive H (Negative) Ur Leukocyte Esterase Small (1+) H (Negative) Urine RBC >20 H (0-2) /HPF Urine WBC >50 H (0-5) /HPF Ur Squamous Epith Cells 6-10 (0-2) /HPF Other Crystals Present Urine Bacteria Trace (None Seen) Hyaline Casts 3-5 (0-2) /LPF Radiology Impression Discussion of test interpretation with radiology: I have reviewed the radiologist's reading. Radiologist Impression: CT abdomen and pelvis without contrast Comparison: None provided Findings: The lung bases are clear. The liver, gallbladder, spleen, adrenal glands and pancreas demonstrate no acute process. No urinary calculus or obstructive uropathy. The bladder is partially distended. Probable small bilateral adnexal cysts. Trace free fluid in the cul-de-sac. There is no bowel obstruction or free air. The appendix is normal. No free fluid, abscess or adenopathy. No acute osseous finding. Impression: No definite acute process. No urinary calculus or obstructive uropathy. Small adnexal cysts are suggested. The appendix appears normal. This document has been electronically signed by: Tommy Johnson MD on 07/04/2025 09:53:20 Independent Historian Clinical information obtained from an independent historian. History obtained from or confirmed by: Friend Prescription Management I considered prescription management with: Pain Medication and Antibiotic Critical Care Time Critical Care Time Critical Care Time: Yes Total Critical Care Time: 35 Attestation: Critical Care: The patient was critically ill with a high probability of imminent or life threatening deterioration. I spent greater than 30 minutes of discontinuous time evaluating the patient,delivering critical care at the bedside, discussing and evaluating pertinent data with consultants. Critical care time does not include time spent performing separately billable procedures or teaching. Total time spent performing critical care was 35 minutes. Discharge Plan Discharge Clinical Impression: Pyelonephritis of right kidney Patient Disposition: Home, Self-Care Instructions: Kidney Infection (ED) Additional Instructions: Your blood work was unremarkable. Your urine sample is consistent with a urinary tract infection. The CT scan of your abdomen pelvis did not reveal any kidney stones or other clear causes for your right-sided pain. At this time I suspect that you have a kidney infection (pyelonephritis) which is causing your pain. Take ibuprofen 200 mg pills, 2 pills every 6 hours as needed for pain or fever. Take Tylenol (acetaminophen) 500 mg pills, 2 pills every 6 hours as needed for pain or fever. Take Pyridium 200 mg pills, 1 pill 3 times a day as needed for painful urination. This medication will make your urine look orange. You received ceftriaxone 1 g IV for your urine infection. Starting tomorrow morning I want you to take cefuroxime 250 mg pills, 1 pill every 12 hours for 5 days. This has an antibiotic that should treat your urine/kidney infection. Follow-up with your doctor in 2 days. Please return to the emergency department if your symptoms get worse or if you develop any symptoms that are concerning to you. Prescriptions: New cefuroxime axetil 250 mg tablet 250 mg PO Q12H 5 Days Qty: 10 0RF phenazopyridine [Pyridium] 200 mg tablet 200 mg PO TID PRN (Reason: Burning with urination) 3 Days Qty: 9 0RF acetaminophen [Tylenol Extra Strength] 500 mg tablet 1,000 mg PO Q6H PRN (Reason: pain) Qty: 20 0RF ibuprofen 400 mg tablet 400 mg PO TID PRN (Reason: fever or pain) Qty: 30 0RF No Action metoclopramide HCl [Reglan] 10 mg tablet 10 mg PO Q6H PRN (Reason: nausea and vomiting) Qty: 14 0RF ketorolac 10 mg tablet 10 mg PO TID PRN (Reason: pain) 5 Days Qty: 15 0RF Rx Instructions: Tolerated IM in the department morphine 15 mg tablet 15 mg PO Q6H PRN (Reason: pain) Qty: 10 0RF Rx Instructions: The patient may ask for partial fill; Partial Fill upon patient request. ketorolac 10 mg tablet 10 mg PO Q8H Qty: 10 0RF Rx Instructions: maximum total duration of 5 days from all oral, intranasal, or parenteral formulations metoclopramide HCl [Reglan] 10 mg tablet 10 mg PO .T.i.d. PRN (Reason: nausea and vomiting) Qty: 10 0RF sulfamethoxazole-trimethoprim [Bactrim DS] 800-160 mg tablet 1 tab PO Q12H 5 Days Qty: 10 0RF Print Language: Lithuanian
[2025-07-04 10:00] VITALS: BP 103/66; PULSE 63; RESP 16; O2SAT 98
[2025-07-04 11:25] VITALS: BP 103/66; PULSE 63; RESP 16; TEMP 36.9; O2SAT 98
== END 2025-07-04 11:25 | disposition home or self-care (01) ==
PROVIDERS: Emergency Provider Emergency Medicine Emergency Medical Services; PCP Physician Assistant
DX: N12 Tubulo-interstitial nephritis, not specified as acute or chronic (principal); R25.2 Cramp and spasm; R31.9 Hematuria, unspecified; R10.A3 Flank pain, bilateral; R11.2 Nausea with vomiting, unspecified; Z79.899 Other long term (current) drug therapy
CPT/HCPCS: 36415; 74176; 80053; 81001; 83605; 84702; 85025; 87040; 87086; 87147; 96361; 96365; 96375; 99284; 99285; J0696; J1885

== ENCOUNTER → 2025-07-04 06:58 | Outpatient (BNV) | payer OTHER, SELFPAY | PROVIDERS: Emergency Provider Emergency Medicine Emergency Medical Services; PCP Physician Assistant; Visit Provider Radiology Vascular & Interventional Radiology | DX: R10.A1 Flank pain, right side (principal); R31.9 Hematuria, unspecified | CPT/HCPCS: 74176 ==